=== PATIENT | female | born 1960 | race Caucasian/White ===

== ENCOUNTER → 2017-05-13 | Outpatient (CLI) | payer BC ==
--- NOTE | 2017-05-13 09:34 | MM ---
Reason for exam: follow-up at short interval from prior study. Last mammogram was performed 1 year ago. History: Patient is postmenopausal. Physical Findings: Nurse did not find any significant physical abnormalities on exam. MG 3D Diag Mammo W/Cad IVAN Bilateral CC and MLO view(s) were taken. Prior study comparison: October 28, 2016, right breast US breast RT. May 20, 2016, bilateral MG screening mammo w CAD. March 29, 2015, right breast MG work up mamm w CAD RT. There are scattered fibroglandular densities. There is no discrete abnormality. These results were verbally communicated with the patient and result sheet given to the patient on 05/13/17. ASSESSMENT: Negative, BI-RAD 1 RECOMMENDATION: Return to routine screening mammogram schedule for both breasts. Back on schedule.
--- NOTE | 2017-05-13 09:41 | USB ---
Reason for exam: follow-up at short interval from prior study. History: Patient is postmenopausal. US Breast RT Right breast ultrasound includes all four quadrants, the retroareolar region and axilla. Finding demonstrates a 0.4 x 0.2 x 0.4cm lesion too small to characterize at 11 o'clock. These results were verbally communicated with the patient and result sheet given to the patient on 05/13/17. ASSESSMENT: Benign, BI-RAD 2 RECOMMENDATION: Return to routine screening mammogram schedule for both breasts.
== END | disposition home or self-care (01) ==
LOC: RADMAMWWP 08:15
PROVIDERS: ATTEND Internal Medicine
DX: R92.8 Other abnormal and inconclusive findings on diagnostic imaging of breast (principal)
CPT/HCPCS: 76641; G0204; G0279

== ENCOUNTER → 2018-11-16 | Outpatient (CLI) | payer OTHER ==
--- NOTE | 2018-11-19 12:15 | MM ---
Reason for exam: screening (asymptomatic). Last mammogram was performed 1 year and 6 months ago. History: Patient is postmenopausal. MG 3D Screening Mammo W/Cad Bilateral CC and MLO view(s) were taken. Prior study comparison: May 13, 2017, bilateral MG 3d diag mammo w/cad IVAN. May 20, 2016, bilateral MG screening mammo w CAD. The breast tissue is heterogeneously dense. This may lower the sensitivity of mammography. No suspicious abnormality. No significant changes when compared with prior studies. ASSESSMENT: Negative, BI-RAD 1 RECOMMENDATION: Routine screening mammogram of both breasts in 1 year.
== END | disposition home or self-care (01) ==
LOC: RADMAMWWP 07:34
PROVIDERS: ATTEND Internal Medicine
DX: Z12.31 Encounter for screening mammogram for malignant neoplasm of breast (principal)
CPT/HCPCS: 77063; 77067

== ENCOUNTER → 2019-12-07 | Outpatient (CLI) | payer OTHER ==
--- NOTE | 2019-12-07 09:01 | BD ---
EXAMINATION TYPE: Axial Bone Density DATE OF EXAM: 12/07/2019 COMPARISON: NONE CLINICAL HISTORY: 59 YR OLD FEMALE...ICD-10 M89.9 DISORDER OF BONE Height: 60.2 Weight: 150 FRAX RISK QUESTIONS: 5. Chronic liver disease: HIGH LIVER ENZYMES RISK FACTORS HISTORY OF: Family History of Osteoporosis: YES, MOTHER W/O HIP FX Active: YES Diet low in dairy products/other sources of calcium: YES, A BIT Postmenopausal woman: YES AT 51 YRS OLD Take estrogen and/or progesterone medications: FOR ONLY 2 MOS IN PAST, NONE NOW Hyperparathyroidism: NO Adrenal Insufficiency: NO MEDICATIONS: Thyroid Medications: SYNTHROID FOR ABOUT 6-7 YRS NOW Additional Medications: STATIN FOR CHOLESTEROL, VIT D3 Additional History: CHOLESTEROL EXAM MEASUREMENTS: Bone mineral densitometry was performed using the [employer]. Bone mineral density as measured about the Lumbar spine is: ----- L1-L4(G/cm2): 1.030 T Score Values are as follows: ----- L1: -1.7 ----- L2: -2.3 ----- L3: -0.5 ----- L4: -0.8 ----- L1-L4: -1.3 Bone mineral density HER FIRST DEXA STUDY FOR [facility] Bone mineral density about the R hip (g/cm2): 0.844 Bone mineral density about the L hip (g/cm2): 0.903 T Score values are as follows: -----R Neck: -1.6 -----L Neck: -1.1 -----R Total: -1.3 -----L Total: -0.8 Bone mineral density FIRST DEXA STUDY AT [facility] FRAX%s: THERE IS A 8.4% CHANCE FOR A MAJOR OSTEOPOROTIC FX AND A 0.8% FOR HIP.....PROBABILITY FOR F X IN 10 YRS TIME IMPRESSION: Osteopenia (T Score between -2.5 and -1). There is slightly increased risk of fracture and the patient may be considered for treatment. Re-Screen 2-5 years. NOTE: T-SCORE=SD OF THE YOUNG ADULT MEAN.
--- NOTE | 2019-12-07 12:02 | MM ---
Reason for exam: screening (asymptomatic). Last mammogram was performed 1 year and 1 month ago. History: Patient is postmenopausal. Physical Findings: A clinical breast exam by your physician is recommended on an annual basis and results should be correlated with mammographic findings. MG 3D Screening Mammo W/Cad Bilateral CC and MLO view(s) were taken. Prior study comparison: November 16, 2018, bilateral MG 3d screening mammo w/cad. May 13, 2017, bilateral MG 3d diag mammo w/cad IVAN. No significant changes when compared with prior studies. ASSESSMENT: Negative, BI-RAD 1 RECOMMENDATION: Routine screening mammogram of both breasts in 1 year.
== END | disposition home or self-care (01) ==
LOC: RADMAMWWP 06:59
PROVIDERS: ATTEND Internal Medicine
DX: Z12.31 Encounter for screening mammogram for malignant neoplasm of breast (principal); M85.88 Other specified disorders of bone density and structure, other site
CPT/HCPCS: 77063; 77067; 77080

== ENCOUNTER → 2021-01-20 | Outpatient (CLI) | payer OTHER ==
[2021-01-20 19:25] LABS: C Reactive Protein, High Sens 1.47 mg/L (0.000-3.000)
[2021-01-20 20:44] LABS: Anti-DNA, DS unit <1.0 IU/mL; Cyclic Citrull Pep IgG Unit <0.5 U/mL; Cyclic Citrullinated Pep IgG NEGATIVE (NEGATIVE); DNA Double-Stranded NEGATIVE (NEGATIVE)
== END | disposition home or self-care (01) ==
LOC: LABWHC1 10:34
PROVIDERS: ATTEND Family Medicine
DX: R61 Generalized hyperhidrosis (principal)
CPT/HCPCS: 36415; 84443; 85652; 86038; 86141; 86200; 86225; 86235; 86431

== ENCOUNTER → 2021-04-02 | Outpatient (CLI) | payer OTHER | END | disposition home or self-care (01) | LOC: LABWHC1 09:37 | PROVIDERS: ATTEND Family Medicine | DX: Z20.822 Contact with and (suspected) exposure to COVID-19 (principal); B34.9 Viral infection, unspecified | CPT/HCPCS: U0003; C9803; U0005 ==

== ENCOUNTER 2021-04-10 13:00 | Emergency (ER) | payer OTHER ==
[2021-04-10 13:09] VITALS: TEMP 97.8
--- NOTE | 2021-04-10 13:28 | ED ---
Upper Extremity HPI - General Chief Complaint: Extremity Injury, Upper Stated Complaint: R arm injury Time Seen by Provider: 04/10/21 13:17 Source: patient Mode of arrival: ambulatory - History of Present Illness Initial Comments: 60-year-old male presents to the emergency department with chief complaint of right hand injury. This occurred about 1 hour prior to arrival. Patient states her grandson accidentally slammed the door on her right hand. She reports a small abrasion on the dorsal aspect of the right hand but states there is some pain with grasping. States she still able to move the fingers without any difficulties. Tenderness to the touch. Alleviated with rest. Also reports some scaphoid tenderness. Denies any paresthesias. Denies taking medication to alleviate the symptoms. - Related Data Allergies Allergy/AdvReac Type Severity Reaction Status Date / Time No Known Allergies Allergy Verified 04/10/21 13:09 Review of Systems ROS Statement: Those systems with pertinent positive or pertinent negative responses have been documented in the HPI. ROS Other: All systems not noted in ROS Statement are negative. Past Medical History Past Medical History: Asthma, Hyperlipidemia, Thyroid Disorder History of Any Multi-Drug Resistant Organisms: None Reported Past Surgical History: Section Past Psychological History: Depression Smoking Status: Never smoker Past Alcohol Use History: Occasional Past Drug Use History: None Reported General Exam Limitations: no limitations General appearance: alert, in no apparent distress Head exam: Present: atraumatic, normocephalic, normal inspection Eye exam: Present: normal appearance, PERRL, EOMI Pupils: Present: normal accommodation ENT exam: Present: normal exam, normal oropharynx, mucous membranes moist Neck exam: Present: normal inspection, full ROM. Absent: tenderness, lymphadenopathy Respiratory exam: Present: normal lung sounds bilaterally. Absent: respiratory distress, rales Cardiovascular Exam: Present: regular rate, normal rhythm, normal heart sounds. Absent: systolic murmur Extremities exam: Present: normal inspection (Small abrasion on dorsal aspect of her right hand), full ROM, tenderness (Tenderness of the hand. Scaphoid tenderness the right thumb base.), normal capillary refill, other (Palpable ulnar and radial pulses bilaterally). Absent: pedal edema, joint swelling, calf tenderness Back exam: Present: normal inspection, full ROM. Absent: tenderness, CVA tenderness (R), CVA tenderness (L) Neurological exam: Present: alert, oriented X3 Psychiatric exam: Present: normal affect, normal mood Skin exam: Present: warm, dry, intact, normal color Course Vital Signs 04/10/21 04/10/21 13:06 15:09 Temperature 97.8 F Pulse Rate 82 72 Respiratory 20 18 Rate Blood Pressure 164/84 150/84 O2 Sat by Pulse 99 97 Oximetry Procedures - Orthopedic Splinting/Casting Injury #1 Side: right Upper Extremity Injury Location: wrist, hand Upper Extremity Immobilizer: thumb spica, Anatoly wrap, synthetic pre-padded splint Medical Decision Making - Medical Decision Making 60-year-old female presents to emergency Department with a chief complaint of injury to the right hand. On physical examination, she is neurovascularly intact, however she appears to have scaphoid tenderness. X-ray is unremarkable. Thumb spica was applied and patient was advised to obtain repeat imaging 7-10 days. Return parameters were thoroughly discussed the patient was understanding and agreeable. Case discussed with . Disposition Clinical Impression: Injury of right hand Disposition: HOME SELF-CARE Condition: Stable Instructions (If sedation given, give patient instructions): Hand Sprain (ED) Additional Instructions: Obtain repeat x-rays in 7-10 days. Return to emergency department if symptoms worsen. Is patient prescribed a controlled substance at d/c from ED?: No Referrals: Terry Quiroz [Primary Care Provider] - 1-2 days Time of Disposition: 15:03
--- NOTE | 2021-04-10 14:46 | XR ---
EXAMINATION TYPE: XR hand complete RT DATE OF EXAM: 04/10/2021 CLINICAL HISTORY: Pain. TECHNIQUE: Frontal, lateral and oblique images of the right hand are obtained. COMPARISON: None. FINDINGS: There is no acute fracture/dislocation evident in the right hand. Lateral subluxation thir d PIP joint with mild to moderate narrowing and mild spurring. [id number] narrowing and spurrin g throughout the PIP/DIP joints. Moderate narrowing and spurring base of first metacarpal. The overl eusebio soft tissue appears unremarkable. IMPRESSION: As above.
[2021-04-10 15:10] VITALS: BP 150/84; PULSE 72; RESP 18
== END 2021-04-10 15:15 | disposition home or self-care (01) ==
LOC: EC 13:00
DX: S60.511A Abrasion of right hand, initial encounter (principal); J45.909 Unspecified asthma, uncomplicated; E78.5 Hyperlipidemia, unspecified; F32.9 Major depressive disorder, single episode, unspecified; W23.0XXA Caught, crushed, jammed, or pinched between moving objects, initial encounter
CPT/HCPCS: 29125; 99283

== ENCOUNTER → 2021-04-22 | Outpatient (CLI) | payer OTHER ==
--- NOTE | 2021-04-22 10:27 | XR ---
EXAMINATION TYPE: XR hand complete RT DATE OF EXAM: 04/22/2021 CLINICAL HISTORY: pain TECHNIQUE: Frontal, lateral and oblique images of the right hand are obtained. COMPARISON: None. FINDINGS: There is no acute fracture/dislocation evident. The joint spaces appear within normal limi ts. The overlying soft tissue appears unremarkable. IMPRESSION: There is no acute fracture or dislocation ICD 10 NO FRACTURE, INITIAL EVALUATION
== END | disposition home or self-care (01) ==
LOC: RADXRMAIN 09:45
PROVIDERS: ATTEND Physician Assistant Medical
DX: M79.641 Pain in right hand (principal)

== ENCOUNTER → 2021-04-25 | Outpatient (CLI) | payer OTHER ==
--- NOTE | 2021-04-30 10:43 | MM ---
Reason for exam: screening (asymptomatic). Last mammogram was performed 1 year and 5 months ago. History: Patient is postmenopausal. Taking estrogen for 1 month beginning at age 60. Physical Findings: A clinical breast exam by your physician is recommended on an annual basis and results should be correlated with mammographic findings. MG 3D Screening Mammo W/Cad Bilateral CC and MLO view(s) were taken. Prior study comparison: December 07, 2019, bilateral MG 3d screening mammo w/cad. November 16, 2018, bilateral MG 3d screening mammo w/cad. May 13, 2017, bilateral MG 3d diag mammo w/cad IVAN. The breast tissue is heterogeneously dense. This may lower the sensitivity of mammography. Right increased focal asymmetry upper outer quadrant anterior to middle depth. Left increased focal asymmetry superior middle depth. ASSESSMENT: Incomplete: need additional imaging evaluation, BI-RAD 0 RECOMMENDATION: Special view mammogram of both breasts. Ultrasound of the right breast. [facility] will attempt to contact patient to return for supplemental views and ultrasound.
== END | disposition home or self-care (01) ==
LOC: RADMAMWWP 12:33
PROVIDERS: ATTEND Obstetrics & Gynecology
DX: Z12.31 Encounter for screening mammogram for malignant neoplasm of breast (principal); Z78.0 Asymptomatic menopausal state
CPT/HCPCS: 77063; 77067

== ENCOUNTER → 2021-05-06 | Outpatient (CLI) | payer OTHER ==
--- NOTE | 2021-05-07 09:59 | MM ---
Reason for exam: additional evaluation requested from abnormal screening. Last mammogram was performed less than 1 month ago. History: Patient is postmenopausal. Taking estrogen for 1 month beginning at age 60. Taking progesterone for 1 month beginning at age 60. Physical Findings: Nurse did not find any significant physical abnormalities on exam. MG 3D Work Up W/Cad IVAN Bilateral spot compression CC, spot compression MLO, and LM view(s) were taken. Prior study comparison: April 25, 2021, bilateral MG 3d screening mammo w/cad. December 07, 2019, bilateral MG 3d screening mammo w/cad. The breast tissue is heterogeneously dense. This may lower the sensitivity of mammography. Increased diffuse breast density bilaterally, most likely hormone replacement, probably benign. 6 month follow up. Denies lump in right axilla or breast, right focal lateral breast pain, ultrasound recommended. These results were verbally communicated with the patient and result sheet given to the patient on 05/06/21. ASSESSMENT: Incomplete: need additional imaging evaluation, BI-RAD 0 RECOMMENDATION: Ultrasound of the right breast. (focal lateral)
--- NOTE | 2021-05-07 10:00 | USB ---
Reason for exam: additional evaluation requested from abnormal screening. History: Patient is postmenopausal. Taking estrogen for 1 month beginning at age 60. Taking progesterone for 1 month beginning at age 60. US Breast Limited RT Technologist: Radha Whitfield Right limited breast ultrasound including focal area of concern, retroareolar and axilla demonstrates no cystic or solid lesion seen. No sonographic findings at site of pain. These results were verbally communicated with the patient and result sheet given to the patient on 05/06/21. ASSESSMENT: Probably benign, BI-RAD 3 RECOMMENDATION: Follow-up diagnostic mammogram of both breasts in 6 months.
== END | disposition home or self-care (01) ==
LOC: RADMAMWWP 12:43
PROVIDERS: ATTEND Obstetrics & Gynecology
DX: R92.2 Inconclusive mammogram (principal); Z78.0 Asymptomatic menopausal state; Z79.3 Long term (current) use of hormonal contraceptives
CPT/HCPCS: 77066; 76642; G0279; 77062

== ENCOUNTER 2021-07-03 10:17 | Emergency (ER) | payer OTHER ==
[2021-07-03 10:27] VITALS: RESP 18
[2021-07-03] MEDS ORDERED: BACITRACIN OINT 1 EACH PACKET TOPICAL ONE (10:50)
[2021-07-03] MEDS ORDERED: IBUPROFEN 600 MG TAB PO STA (10:50)
--- NOTE | 2021-07-03 10:54 | ED ---
General Adult HPI - General Chief complaint: Fall Stated complaint: Fall, arm & knee injury Time Seen by Provider: 07/03/21 10:38 Source: patient, RN notes reviewed Mode of arrival: ambulatory Limitations: no limitations - History of Present Illness Initial comments: Well-appearing 60-year-old female presents to the emergency room after trying to help her disabled daughter in a wheelchair down a step. She states she ended up falling forward landing on her elbows and knees. She has sustained abrasions to her left hand, her elbows and bilateral knees. She states that she is concerned about the left elbow and hand and is requesting an x-ray. She has full mobility. Her tetanus shot is up-to-date. She did not hit her head and she is not on blood thinners. Location: left (Left hand), upper extremity (Bilateral elbows), lower extremity (Bilateral knees) Radiation: non-radiation Severity scale (1-10): 8 Quality: aching Consistency: constant Improves with: immobilization Worsens with: movement Associated Symptoms: denies other symptoms Treatments Prior to Arrival: none - Related Data Allergies Allergy/AdvReac Type Severity Reaction Status Date / Time No Known Allergies Allergy Verified 07/03/21 10:23 Review of Systems ROS Statement: Those systems with pertinent positive or pertinent negative responses have been documented in the HPI. ROS Other: All systems not noted in ROS Statement are negative. Past Medical History Past Medical History: Asthma, Hyperlipidemia, Thyroid Disorder History of Any Multi-Drug Resistant Organisms: None Reported Past Surgical History: Section Past Psychological History: Depression Smoking Status: Never smoker Past Alcohol Use History: Occasional Past Drug Use History: None Reported General Exam Limitations: no limitations General appearance: alert, in no apparent distress Head exam: Present: atraumatic, normocephalic, normal inspection Eye exam: Present: normal appearance, PERRL, EOMI. Absent: scleral icterus, conjunctival injection, periorbital swelling ENT exam: Present: normal exam, normal oropharynx, mucous membranes moist Neck exam: Present: normal inspection, full ROM. Absent: tenderness, meningismus, lymphadenopathy, thyromegaly Respiratory exam: Present: normal lung sounds bilaterally. Absent: respiratory distress, wheezes, rales, rhonchi, stridor, chest wall tenderness, accessory muscle use, decreased breath sounds Cardiovascular Exam: Present: regular rate, normal rhythm, normal heart sounds. Absent: systolic murmur, diastolic murmur, rubs, gallop, clicks GI/Abdominal exam: Present: soft, normal bowel sounds. Absent: distended, tenderness, guarding, rebound, rigid Extremities exam: Present: full ROM, normal capillary refill. Absent: tenderness, pedal edema, joint swelling, calf tenderness Left Elbow exam: Present: full ROM, tenderness, swelling, abrasion. Absent: laceration, ecchymosis, deformity, dislocation, erythema, effusion Hand Wrist exam: Present: full ROM, tenderness, abrasion. Absent: laceration, ecchymosis, deformity, crepitus, dislocation, erythema Neuro motor exam: Present: wrist extension intact Vascular: Present: radial pulse. Absent: vascular compromise, normal capillary refill Back exam: Present: normal inspection, full ROM. Absent: tenderness, CVA tenderness (R), CVA tenderness (L), muscle spasm, paraspinal tenderness, vertebral tenderness, rash noted Neurological exam: Present: alert, oriented X3, CN II-XII intact Psychiatric exam: Present: normal affect, normal mood Skin exam: Present: warm, dry, intact, normal color. Absent: rash, cyanosis, diaphoretic, pallor Course Vital Signs 07/03/21 07/03/21 10:23 12:29 Temperature 98.6 F 98.2 F Pulse Rate 78 81 Respiratory 18 18 Rate Blood Pressure 158/89 165/82 O2 Sat by Pulse 98 98 Oximetry Medical Decision Making - Medical Decision Making X-ray of the elbow shows no acute fracture or dislocation. There is no acute fracture dislocation of the left hand. Her wounds were cleaned and dressed with bacitracin and bandages. She will be directed to follow up with primary care doctor continue Tylenol or Motrin for pain. Return to the emergency room with any new or worsening symptoms or signs of infection. Her tetanus shot is up-to-date. Disposition Clinical Impression: Fall, Abrasion Disposition: HOME SELF-CARE Condition: Good Instructions (If sedation given, give patient instructions): Abrasion (ED), Fall Prevention (ED) Additional Instructions: Keep wounds clean and dry, use bacitracin or Neosporin bandages. Take Tylenol and/or Motrin for pain. Follow-up with your primary care doctor in 1 week. Return to the emergency room with any new or worsening symptoms. Is patient prescribed a controlled substance at d/c from ED?: No Referrals: Terry Quiroz [Primary Care Provider] - 1-2 days Time of Disposition: 12:23
--- NOTE | 2021-07-03 11:32 | XR ---
EXAMINATION TYPE: XR elbow complete LT DATE OF EXAM: 07/03/2021 CLINICAL HISTORY: Pain after fall injury TECHNIQUE: Frontal, lateral and oblique images of the left elbow are obtained. COMPARISON: None FINDINGS: There is no acute fracture/dislocation evident in the left elbow. No abnormal fat pad sig ns are seen. The overlying soft tissue appears unremarkable. IMPRESSION: There is no acute fracture or dislocation in the left elbow.
--- NOTE | 2021-07-03 12:13 | XR ---
EXAMINATION TYPE: XR hand complete LT DATE OF EXAM: 07/03/2021 CLINICAL HISTORY: Fall with laceration injury and pain TECHNIQUE: Frontal, lateral and oblique images of the left hand are obtained. COMPARISON: None. FINDINGS: Osseous structures are demineralized. There is no acute fracture/dislocation evident in th e left hand. Severe narrowing base of first metacarpal with bone reformation radial aspect from the t rapezium. Mild to moderate narrowing throughout the PIP and the DIP joints of the phalanges. The over lying soft tissue appears unremarkable. IMPRESSION: There is no acute fracture or dislocation in the left hand.
[2021-07-03 12:30] VITALS: BP 165/82; PULSE 81; TEMP 98.2
== END 2021-07-03 12:30 | disposition home or self-care (01) ==
LOC: EC 10:17
DX: S60.512A Abrasion of left hand, initial encounter (principal); E78.5 Hyperlipidemia, unspecified; W10.9XXA Fall (on) (from) unspecified stairs and steps, initial encounter
CPT/HCPCS: 99284

== ENCOUNTER → 2021-07-21 | Outpatient (CLI) | payer OTHER ==
--- NOTE | 2021-07-21 14:15 | XR ---
EXAMINATION TYPE: XR knee complete LT DATE OF EXAM: 07/21/2021 COMPARISON: None HISTORY: 50-year-old female M2 5.562 medial pain and tenderness. TECHNIQUE: 3 views FINDINGS: There is tricompartmental degenerative spurring. Trace knee joint effusion is suggested. Extensor mec hanism appears intact. No acute fracture, subluxation, or dislocation seen. There is a mediastinal so ft tissue swelling on the oblique view. No acute fracture, subluxation, dislocation seen. IMPRESSION: 1. Mild tricompartmental osteoarthrosis. No acute osseous abnormality seen. 2. There appears to be a medial sided soft tissue swelling on the oblique view. If concern for management retail intern al derangement, MRI can be performed.
== END | disposition home or self-care (01) ==
LOC: RADXRMAIN 12:01
PROVIDERS: ATTEND Family Medicine
DX: M17.12 Unilateral primary osteoarthritis, left knee (principal)

== ENCOUNTER 2021-10-07 18:04 | Emergency (ER) | payer OTHER ==
[2021-10-07 18:45] LABS: Basophils # (A) 0.1 k/uL (0-0.2); Basophils % (A) 0 %; Eosinophils # (A) 0.3 k/uL (0-0.7); Eosinophils % (A) 2 %; HCT 42.7 % (34.0-46.0); HGB 14.4 gm/dL (11.4-16.0); Lymphocytes # (A) 1.8 k/uL (1.0-4.8); Lymphocytes % (A) 11 %; MCH 30.4 pg (25.0-35.0); MCHC 33.8 g/dL (31.0-37.0); Mean Platelet Volume 7.2; Monocytes # (A) 0.7 k/uL (0-1.0); Monocytes % (A) 4 %; Neutrophils # (A) 13.1 k/uL (1.3-7.7); Neutrophils % (A) 81 %; Platelet Count 307 k/uL (150-450); RBC 4.75 m/uL (3.80-5.40); WBC 16.2 k/uL (3.8-10.6)
[2021-10-07 18:53] LABS: INR 0.9 (<1.2); Partial Thromboplastin Time 24.1 sec (22.0-30.0)
--- NOTE | 2021-10-07 19:06 | XR ---
EXAMINATION TYPE: XR chest 2V DATE OF EXAM: 10/07/2021 COMPARISON: NONE HISTORY: Chest tightness TECHNIQUE: 2 views FINDINGS: Heart and mediastinum are normal. Lungs are clear of consolidation. There is slight coarsen ing of interstitial markings. There is no pleural effusion. There are no hilar masses. IMPRESSION: Minimal pulmonary fibrotic changes. Normal heart.
[2021-10-07 19:09] LABS: ALT 46 U/L (4-34); AST 36 U/L (14-36); African American GFR (CKD) >90 (>60 ml/min/1.73 sqM); Albumin 4.4 g/dL (3.5-5.0); Alkaline Phosphatase 89 U/L (38-126); Blood Urea Nitrogen 9 mg/dL (7-17); Calcium 8.8 mg/dL (8.4-10.2); Carbon Dioxide 20 mmol/L (22-30); Glucose 100 mg/dL (74-99); Non-African American GFR(CKD) >90 (>60 ml/min/1.73 sqM); Total Bilirubin 1.3 mg/dL (0.2-1.3); Total Protein 7.6 g/dL (6.3-8.2)
[2021-10-07 19:15] LABS: Anion Gap 11 mmol/L; Chloride 105 mmol/L (98-107); Sodium 136 mmol/L (137-145)
[2021-10-07] MEDS ORDERED: AMOXIC-POT CLAV 875-125MG 1 EACH TAB PO STA (21:57)
[2021-10-07] MEDS ORDERED: Acetaminophen-Codeine 300-30mg TAB PO STA (21:57)
[2021-10-07] MEDS ORDERED: ONDANSETRON ODT 4 MG TAB PO STA (21:57)
--- NOTE | 2021-10-07 21:57 | ED ---
Chest Pain HPI - General Chief Complaint: Chest Pain Stated Complaint: chest tightness, diverticulitis Time Seen by Provider: 10/07/21 21:47 Source: patient, RN notes reviewed, old records reviewed Mode of arrival: wheelchair Limitations: no limitations - History of Present Illness Initial Comments: This is a 61-year-old female to the ER today for evaluation regards to abdominal pain and chest pain. Patient also has recent coronavirus exposure. Patient has no recent fevers. Patient also believes that she has recurrent diverticulitis. Patient states she is not evaluation for diverticulitis she notes she does feel diffusely treatment. MD Complaint: chest pain, other (LLQ abd pain) -: days(s) Onset: during rest, during exertion Pain Location: left chest, right chest Pain Radiation: abdomen Severity: moderate Quality: aching Consistency: intermittent Improves With: nothing Worsens With: nothing Anginal Symptoms: nausea, vomiting Other Symptoms: palpitations Treatments Prior to Arrival: none - Related Data Previous Rx's Medication Instructions Recorded Amoxic-Pot Clav 875-125Mg 1 tab PO Q12HR #20 tablet 10/07/21 [Augmentin 875-125] Allergies Allergy/AdvReac Type Severity Reaction Status Date / Time No Known Allergies Allergy Verified 10/07/21 18:10 Review of Systems ROS Statement: Those systems with pertinent positive or pertinent negative responses have been documented in the HPI. ROS Other: All systems not noted in ROS Statement are negative. Past Medical History Past Medical History: Asthma, Hyperlipidemia, Thyroid Disorder History of Any Multi-Drug Resistant Organisms: None Reported Past Surgical History: Section Past Psychological History: Depression Smoking Status: Never smoker Past Alcohol Use History: Occasional Past Drug Use History: None Reported General Exam Limitations: no limitations General appearance: alert, in no apparent distress, anxious Head exam: Present: atraumatic, normocephalic, normal inspection Eye exam: Present: normal appearance, PERRL, EOMI. Absent: scleral icterus, conjunctival injection, periorbital swelling ENT exam: Present: normal exam, mucous membranes moist Neck exam: Present: normal inspection. Absent: tenderness, meningismus, lymphadenopathy Respiratory exam: Present: normal lung sounds bilaterally. Absent: respiratory distress, wheezes, rales, rhonchi, stridor Cardiovascular Exam: Present: normal rhythm, tachycardia, normal heart sounds. Absent: systolic murmur, diastolic murmur, rubs, gallop, clicks GI/Abdominal exam: Present: soft, normal bowel sounds. Absent: distended, tenderness, guarding, rebound, rigid Extremities exam: Present: normal inspection, full ROM, normal capillary refill. Absent: tenderness, pedal edema, joint swelling, calf tenderness Back exam: Present: normal inspection Neurological exam: Present: alert, oriented X3, CN II-XII intact Psychiatric exam: Present: normal affect, normal mood Skin exam: Present: warm, dry, intact, normal color. Absent: rash Course Vital Signs 10/07/21 10/07/21 18:06 22:15 Temperature 99.0 F 99 F Pulse Rate 111 H 100 Respiratory 19 17 Rate Blood Pressure 157/79 136/78 O2 Sat by Pulse 98 99 Oximetry - Reevaluation(s) Reevaluation #1: Medical record is reviewed Patient symptoms are significantly improved here in the ER Patient informed results and questions answered Chest Pain MDM - MDM 61 female who believes she has recurrent diverticulitis and current chest pain. Chest pain workup is normal. Patient has improved symptoms of diverticulitis with fell outpatient treatment Disposition Clinical Impression: Atypical chest pain, Chest pain, Acute diverticulitis Disposition: HOME SELF-CARE Condition: Good Instructions (If sedation given, give patient instructions): Chest Pain (ED), Diverticulitis (ED) Prescriptions: Amoxic-Pot Clav 875-125Mg [Augmentin 875-125] 1 tab PO Q12HR #20 tablet Is patient prescribed a controlled substance at d/c from ED?: No Referrals: Terry Quiroz [Primary Care Provider] - 1-2 days
[2021-10-07] MEDS ORDERED: ONDANSETRON 4 MG ODT STARTER PACK 2 TAB BTL PO STA (21:58)
[2021-10-07] MEDS ORDERED: IBUPROFEN 600 MG STARTER PACK 4 TAB BTL PO STA (21:58)
[2021-10-07] MEDS ORDERED: AMOXIC-POT CLAV 875MG STARTER PACK 2 TAB BTL PO STA (21:58)
[2021-10-07] MEDS ORDERED: ACET/COD 300 MG/30 MG STARTER PACK 6 TAB BTL PO STA (21:58)
[2021-10-07 22:16] VITALS: BP 136/78; PULSE 100; RESP 17; TEMP 99
== END 2021-10-07 22:16 | disposition home or self-care (01) ==
LOC: EC 18:04
DX: R07.89 Other chest pain (principal); K57.32 Diverticulitis of large intestine without perforation or abscess without bleeding; J45.909 Unspecified asthma, uncomplicated; E78.5 Hyperlipidemia, unspecified; E07.9 Disorder of thyroid, unspecified; F32.A Depression, unspecified
CPT/HCPCS: 99285; 36415; 93005; 80053; 83735; 84484; 85025; 85610; 85730; 87635; 71046; S0119

== ENCOUNTER → 2021-10-29 | Outpatient (CLI) | payer OTHER ==
--- NOTE | 2021-10-30 07:55 | MM ---
Reason for exam: additional evaluation requested from prior study. Last mammogram was performed 6 months ago. History: Patient is postmenopausal. Taking estrogen for 1 month beginning at age 60. Taking progesterone for 1 month beginning at age 60. Physical Findings: Nurse did not find any significant physical abnormalities on exam. MG 3D Diag Mammo W/Cad IVAN Bilateral CC and MLO view(s) were taken. Prior study comparison: May 06, 2021, bilateral MG 3d work up w/cad IVAN. April 25, 2021, bilateral MG 3d screening mammo w/cad. The breast tissue is heterogeneously dense. This may lower the sensitivity of mammography. There is no discrete abnormality. These results were verbally communicated with the patient and result sheet given to the patient on 10/29/21. ASSESSMENT: Benign, BI-RAD 2 RECOMMENDATION: Routine screening mammogram of both breasts in 1 year.
== END | disposition home or self-care (01) ==
LOC: RADMAMWWP 14:47
PROVIDERS: ATTEND Obstetrics & Gynecology
DX: R92.2 Inconclusive mammogram (principal); Z78.0 Asymptomatic menopausal state
CPT/HCPCS: 77066; G0279; 77062

== ENCOUNTER → 2022-01-07 | Outpatient (CLI) | payer OTHER ==
--- NOTE | 2022-01-07 09:14 | XR ---
EXAMINATION TYPE: XR chest 2V DATE OF EXAM: 01/07/2022 COMPARISON: X-ray dated 10/07/2021 HISTORY: Cough for 4 months TECHNIQUE: Frontal and lateral views of the chest are obtained. FINDINGS: Unremarkable lungs. No pleural effusion or pneumothorax. No cardiomegaly. Mild aortic atherosclerotic calcifications. Mild degenerative changes of the midthoracic spine. IMPRESSION: No significant pulmonary abnormality identified.
== END | disposition home or self-care (01) ==
LOC: RADXRMAIN 08:48
PROVIDERS: ATTEND Family Medicine
DX: R06.02 Shortness of breath (principal); R05.9 Cough, unspecified
CPT/HCPCS: 71046

== ENCOUNTER 2022-03-03 08:22 | Day surgery (SDC) | payer OTHER ==
[2022-02-27 10:30] VITALS: BMI 29.5
[~2022-03-03 08:22] MED LIST: LACTATED RINGERS 1,000 ML IV SCH; LIDOCAINE 1% (10MG/ML) FOR IV START INTRADERMA PRN; ONDANSETRON 4 MG/2 ML VIAL IVP PRN
[2022-03-03 09:18] VITALS: TEMP 97.9
[2022-03-03 09:28] LABS: Glucose,Whole Blood 90 mg/dL (75-99)
[2022-03-03] MEDS ORDERED: LIDOCAINE 2% INJ 20 MG/ML (2 ML VIAL) ONE (10:04)
[2022-03-03] MEDS ORDERED: PROPOFOL 10 MG/ML 20 ML VIAL IV ONE (10:04)
--- NOTE | 2022-03-03 10:26 | P.PCN ---
Date of Procedure: 03/03/22 Procedure(s) Performed: BRIEF HISTORY: Patient is a 61-year-old pleasant female scheduled for an elective colonoscopy as a part of evaluation of prior history of colon polyps. She also had 2 attacks of acute sigmoid diverticulitis in the last 1 year duration. PROCEDURE PERFORMED: Colonoscopy. PREOPERATIVE DIAGNOSIS:History of colon polyps and recent episode of acute sigmoid diverticulitis]. IV sedation per Anesthesia. PROCEDURE: After informed consent was obtained, the patient, was brought into the endoscopy unit. IV sedation was administered by Anesthesia under continuous monitoring. Digital rectal examination was normal. Initially the Olympus CF-160 flexible video colonoscope was then inserted in the rectum, gradually advanced into the cecum without any difficulty. Careful examination was performed as the scope was gradually being withdrawn. Ileocecal valve and the appendiceal orifice were visualized and appeared normal. Prep was excellent. Mucosa of the cecum, ascending colon, transverse colon, descending colon, sigmoid colon, and rectum appeared normal. A few scattered diverticulosis seen. Retroflexion was performed in the rectum and no lesions were seen. The patient tolerated the procedure well. IMPRESSION: Diffuse scattered diverticulosis noted throughout the entire colon more prominent in the left colon. No evidence of colorectal neoplasia RECOMMENDATIONS: Findings of this examination were discussed with the patient as well as her family. She was advised to be a high-fiber diet and fiber supplements a regular basis. Recommend repeat screening colonoscopy in 10 years..
[2022-03-03 10:34] VITALS: RESP 16
[2022-03-03 10:42] VITALS: BP 123/83; PULSE 83
== END 2022-03-03 11:10 | disposition home or self-care (01) ==
LOC: ORWHC2ENDO 08:22
PROVIDERS: ATTEND Internal Medicine Gastroenterology
DX: K57.32 Diverticulitis of large intestine without perforation or abscess without bleeding (principal); Z86.010 Personal history of colon polyps; E78.5 Hyperlipidemia, unspecified; J45.909 Unspecified asthma, uncomplicated; E07.9 Disorder of thyroid, unspecified; K21.9 Gastro-esophageal reflux disease without esophagitis; Z79.899 Other long term (current) drug therapy
CPT/HCPCS: 45378; J2704; J2001

== ENCOUNTER → 2022-06-09 | Outpatient (CLI) | payer OTHER ==
--- NOTE | 2022-06-10 07:07 | XR ---
EXAMINATION TYPE: XR toes RT DATE OF EXAM: 06/09/2022 5:05 PM INDICATION: Patient age:Female; 61 years old; Reason for study: S92.919A UNSP FRACTURE OF UNSP TOE(S), INIT FOR CL; COMPARISON: None TECHNIQUE: The toes of the right foot foot was examined in the AP, oblique, and lateral projections. FINDINGS: No evidence of any acute osseous pathology. No evidence of soft tissue swelling. Joints are preserve d. Incidental note is made of symphalangism of the fifth distal interphalangeal joint. No radiopaque foreign bodies. IMPRESSION: No evidence of acute fracture.
== END | disposition home or self-care (01) ==
LOC: RADXRMAIN 16:49
PROVIDERS: ATTEND Family Medicine
DX: S92.911A Unspecified fracture of right toe(s), initial encounter for closed fracture (principal)

== ENCOUNTER → 2022-07-08 | Outpatient (CLI) | payer OTHER ==
--- NOTE | 2022-07-08 13:34 | MM ---
Reason for Exam: Screening (asymptomatic). Last screening mammogram was performed 9 month(s) ago. Patient History: Menarche at age 12. First Full-Term at age 20. Postmenopausal. Patient has history of breast feeding. Currently using Estrogen, for 1 month. Currently using Progesterone, for 1 month. Risk Values: Bridgette 5 year model risk: 1.3%. NCI Lifetime model risk: 5.5%. Prior Study Comparison: 04/25/2021 Bilateral Screening Mammogram, [facility]. 05/06/2021 Bilateral Diagnostic Mammogram, [facility]. 10/29/2021 Bilateral Diagnostic Mammogram, [facility]. Tissue Density: The breast tissue is heterogeneously dense. This may lower the sensitivity of mammography. Findings: Analyzed By CAD. No significant changes when compared with prior studies. No discrete abnormality. Overall Assessment: Negative, BI-RAD 1 Management: Screening Mammogram of both breasts in 1 year. A clinical breast exam by your physician is recommended on an annual basis and results should be correlated with mammographic findings. Electronically signed and approved by: Dale Sánchez M.D. Radiologis
--- NOTE | 2022-07-09 19:14 | BD ---
EXAMINATION TYPE: Axial Bone Density DATE OF EXAM: 07/08/2022 COMPARISON: NONE CLINICAL HISTORY: 61 year old Female. ICD-10 CODE: M85.88 DISORDER OF BONE Height: 60.5 Weight: 160 FRAX RISK QUESTIONS: Alcohol (3 or more units per day): no Family History (Parent hip fracture): no Glucocorticoids (More than 3mos): no (Ex: prednisone, prednisolone, methylprednisolone, dexamethasone, and hydrocortisone). History of Fracture in Adulthood: no Secondary Osteoporosis: 1. Type 1 Diabetes: no 2. Hyperthyroidism: no 3. Menopause before 45: no 4. Malnutrition: no 5. Chronic liver disease: no Rheumatoid Arthritis: no Current Tobacco Use: no RISK FACTORS HISTORY OF: Surgery to Spine/Hip(right/left)/Wrist (right/left): no Family History of Osteoporosis: no Active: yes Diet low in dairy products/other sources of calcium: yes Postmenopausal woman: yes Take estrogen and/or progesterone medications: yes How lon years Lost more than 2 inches in height since high school: no MEDICATIONS: Thyroid Medications: levothyroxine How Lon years Additional History: EXAM MEASUREMENTS: Bone mineral densitometry was performed using the [employer] System. Bone mineral density as measured about the Lumbar spine is: ----- L1-L4(G/cm2): 1.083 T Score Values are as follows: ----- L1: -1.1 ----- L2: -1.9 ----- L3: -0.1 ----- L4: -0.5 ----- L1-L4: -0.8 Bone mineral density : previous unavailable Bone mineral density about the R hip (g/cm2): 0.877 Bone mineral density about the L hip (g/cm2): 0.880 T Score values are as follows: -----R Neck: -1.2 -----L Neck: -1.1 -----R Total: -0.9 -----L Total: -0.7 Bone mineral density : previous unavailable FRAX%s: The graph provided illustrates a 7.7% chance for a major osteoporotic fx and a 0.6% chance fo r the hips probability for fx in 10 years time. IMPRESSION: Osteopenia (T Score between -2.5 and -1). There is slightly increased risk of fracture and the patient may be considered for treatment. Re-Screen 2-5 years. NOTE: T-SCORE=SD OF THE YOUNG ADULT MEAN.
== END | disposition home or self-care (01) ==
LOC: RADMAMWWP 07:17
PROVIDERS: ATTEND Obstetrics & Gynecology
DX: Z12.31 Encounter for screening mammogram for malignant neoplasm of breast (principal); M85.89 Other specified disorders of bone density and structure, multiple sites; Z78.0 Asymptomatic menopausal state
CPT/HCPCS: 77063; 77067; 77080

== ENCOUNTER 2022-08-17 09:58 | Emergency (ER) | payer OTHER ==
[2022-08-17 10:21] VITALS: RESP 18; TEMP 98.6
[2022-08-17] MEDS ORDERED: ALBUTEROL HFA INHALER INHALATION STA (10:53)
[2022-08-17] MEDS ORDERED: ACETAMINOPHEN TAB 325 MG TAB PO STA (10:53)
--- NOTE | 2022-08-17 11:00 | ED ---
URI HPI - General Chief Complaint: Upper Respiratory Infection Stated Complaint: Cough,fever,SOB Time Seen by Provider: 08/17/22 10:43 Source: patient Mode of arrival: ambulatory Limitations: no limitations - History of Present Illness Initial Comments: This is a well-appearing 61-year-old female that presents with fever, cough and shortness of breath that started last night. States that her daughter is sick with similar symptoms. She does have a history of having coronavirus. She also has history of asthma. No nausea vomiting or diarrhea. No chest pain or abdominal pain. She is a nonsmoker. MD Complaint: fever, cough -: days(s) (1) Severity scale (1-10): 6 Quality: other (tight with deep breath or cough) Consistency: constant Improves With: nothing Context: sick contacts (family member) Associated Symptoms: fever, cough, shortness of breath Treatments Prior to Arrival: none - Related Data Home Medications Medication Instructions Recorded Confirmed Atorvastatin [Lipitor] 40 mg PO HS 02/27/22 03/03/22 Citalopram Hydrobromide [CeleXA] 20 mg PO HS 02/27/22 03/03/22 Estrogen,Con/M-Progest Acet 1 each PO HS 02/27/22 03/03/22 [Prempro 0.3 mg-1.5 mg Tablet] Levothyroxine Sodium [Synthroid] 50 mcg PO DAILY 02/27/22 03/03/22 Pantoprazole Sodium [Protonix] 20 mg PO HS 02/27/22 03/03/22 traZODone HCL 50 mg PO HS 02/27/22 03/03/22 Previous Rx's Medication Instructions Recorded Albuterol Inhaler [Ventolin Hfa 1 - 2 puff INHALATION Q6H PRN #1 08/17/22 Inhaler] dispenser Azithromycin [Zithromax Z Pack] 1 tab PO DIRECTED #6 tab 08/17/22 predniSONE 50 mg PO DAILY #5 tab 08/17/22 Allergies Allergy/AdvReac Type Severity Reaction Status Date / Time No Known Allergies Allergy Verified 08/17/22 10:21 Review of Systems ROS Statement: Those systems with pertinent positive or pertinent negative responses have been documented in the HPI. ROS Other: All systems not noted in ROS Statement are negative. Past Medical History Past Medical History: Asthma, Hyperlipidemia, Thyroid Disorder History of Any Multi-Drug Resistant Organisms: None Reported Past Surgical History: Section Past Psychological History: Depression Smoking Status: Never smoker Past Alcohol Use History: None Reported Past Drug Use History: None Reported General Exam Limitations: no limitations General appearance: alert, in no apparent distress Head exam: Present: atraumatic Eye exam: Present: normal appearance. Absent: scleral icterus, conjunctival injection, periorbital swelling ENT exam: Present: mucous membranes moist Neck exam: Absent: meningismus Respiratory exam: Present: rales (Right base). Absent: respiratory distress, wheezes, rhonchi, stridor, chest wall tenderness, accessory muscle use, decreased breath sounds Cardiovascular Exam: Present: normal rhythm, tachycardia, normal heart sounds GI/Abdominal exam: Present: soft. Absent: distended, tenderness, guarding, rebound, rigid Extremities exam: Present: normal capillary refill. Absent: tenderness, pedal edema Neurological exam: Present: alert, oriented X3 Psychiatric exam: Present: normal affect, normal mood Skin exam: Present: warm, dry, normal color. Absent: cyanosis, diaphoretic, petechiae, pallor Course Vital Signs 08/17/22 08/17/22 10:19 12:39 Temperature 98.6 F Pulse Rate 126 H 109 H Respiratory 18 18 Rate Blood Pressure 156/83 131/71 O2 Sat by Pulse 97 95 Oximetry Medical Decision Making - Medical Decision Making Patient presents with productive cough and shortness of breath since last night. Chest x-ray shows no acute process, no pleural effusion. Cardiac silhouette within normal limits. EKG shows normal sinus rhythm with ventricular rate 120. No ST elevation, normal axis. Troponin negative at 0.012. Patient denies any chest pain. D-dimer is negative. Patient with expiratory wheezes bilaterally, with rales at the right lung base. She was given albuterol treatments, Decadron and Rocephin for clinical pneumonia due to patient report of fever, evidence of leukocytosis with rales at the right lung base. Patient is a nonsmoker. Does have a childhood history of asthma. She was prescribed prednisone, albuterol and Z-Timur for clinical pneumonia with bronchitis. She was directed to follow up with her primary care doctor this week and return to the emergency room with any new or concerning symptoms including chest pain or difficulty breathing. She is agreeable to this plan of care. Case discussed with Dr. Allen. - Lab Data Result diagrams: 08/17/22 12:47 08/17/22 12:47 Lab Results 08/17/22 08/17/22 08/17/22 Range/Units 10:29 10:29 12:47 WBC 13.2 H (3.8-10.6) k/uL RBC 4.80 (3.80-5.40) m/uL Hgb 14.4 (11.4-16.0) gm/dL Hct 42.6 (34.0-46.0) % MCV 88.7 (80.0-100.0) fL MCH 30.1 (25.0-35.0) pg MCHC 33.9 (31.0-37.0) g/dL RDW 11.8 (11.5-15.5) % Plt Count 300 (150-450) k/uL MPV 7.5 Neutrophils % 86 % Lymphocytes % 7 % Monocytes % 4 % Eosinophils % 1 % Basophils % 0 % Neutrophils # 11.4 H (1.3-7.7) k/uL Lymphocytes # 0.9 L (1.0-4.8) k/uL Monocytes # 0.6 (0-1.0) k/uL Eosinophils # 0.2 (0-0.7) k/uL Basophils # 0.1 (0-0.2) k/uL PT (9.0-12.0) sec INR (<1.2) APTT (22.0-30.0) sec D-Dimer (<0.60) mg/L FEU Sodium (137-145) mmol/L Potassium (3.5-5.1) mmol/L Chloride (98-107) mmol/L Carbon Dioxide (22-30) mmol/L Anion Gap mmol/L BUN (7-17) mg/dL Creatinine (0.52-1.04) mg/dL Est GFR (CKD-EPI)AfAm (>60 ml/min/1.73 sqM) Est GFR (CKD-EPI)NonAf (>60 ml/min/1.73 sqM) Glucose (74-99) mg/dL Calcium (8.4-10.2) mg/dL Magnesium (1.6-2.3) mg/dL Total Bilirubin (0.2-1.3) mg/dL AST (14-36) U/L ALT (4-34) U/L Alkaline Phosphatase (38-126) U/L Troponin I (0.000-0.034) ng/mL Total Protein (6.3-8.2) g/dL Albumin (3.5-5.0) g/dL Coronavirus (PCR) Not Detected (Not Detectd) Influenza Type A RNA Not Detected (Not Detectd) Influenza Type B (PCR) Not Detected (Not Detectd) 08/17/22 08/17/22 08/17/22 Range/Units 12:47 12:47 12:47 WBC (3.8-10.6) k/uL RBC (3.80-5.40) m/uL Hgb (11.4-16.0) gm/dL Hct (34.0-46.0) % MCV (80.0-100.0) fL MCH (25.0-35.0) pg MCHC (31.0-37.0) g/dL RDW (11.5-15.5) % Plt Count (150-450) k/uL MPV Neutrophils % % Lymphocytes % % Monocytes % % Eosinophils % % Basophils % % Neutrophils # (1.3-7.7) k/uL Lymphocytes # (1.0-4.8) k/uL Monocytes # (0-1.0) k/uL Eosinophils # (0-0.7) k/uL Basophils # (0-0.2) k/uL PT 10.6 (9.0-12.0) sec INR 1.0 (<1.2) APTT 25.4 (22.0-30.0) sec D-Dimer 0.42 (<0.60) mg/L FEU Sodium 138 (137-145) mmol/L Potassium 3.7 (3.5-5.1) mmol/L Chloride 104 (98-107) mmol/L Carbon Dioxide 22 (22-30) mmol/L Anion Gap 12 mmol/L BUN 8 (7-17) mg/dL Creatinine 0.56 (0.52-1.04) mg/dL Est GFR (CKD-EPI)AfAm >90 (>60 ml/min/1.73 sqM) Est GFR (CKD-EPI)NonAf >90 (>60 ml/min/1.73 sqM) Glucose 130 H (74-99) mg/dL Calcium 8.8 (8.4-10.2) mg/dL Magnesium 1.8 (1.6-2.3) mg/dL Total Bilirubin 1.5 H (0.2-1.3) mg/dL AST 40 H (14-36) U/L ALT 69 H (4-34) U/L Alkaline Phosphatase 131 H (38-126) U/L Troponin I <0.012 (0.000-0.034) ng/mL Total Protein 7.3 (6.3-8.2) g/dL Albumin 4.5 (3.5-5.0) g/dL Coronavirus (PCR) (Not Detectd) Influenza Type A RNA (Not Detectd) Influenza Type B (PCR) (Not Detectd) - EKG Data EKG shows normal: sinus rhythm Rate: tachycardia (Ventricular rate 120, HI interval 0.166, QRS 0.91, QTC 0.410, normal axis) When compared to previous EKG there are: other (Old EKG 10/07/2021) Disposition Clinical Impression: Acute upper respiratory infection, Bronchitis Disposition: HOME SELF-CARE Condition: Good Instructions (If sedation given, give patient instructions): Upper Respiratory Infection (ED) Additional Instructions: Take antibiotics and steroids as prescribed. Use albuterol inhaler 1-2 puffs every 4 hours as needed for cough or difficulty breathing. Return to the emergency room if any new or concerning symptoms. Tylenol for any fevers or discomfort. Follow-up with your primary care doctor this week. Prescriptions: predniSONE 50 mg PO DAILY #5 tab Albuterol Inhaler [Ventolin Hfa Inhaler] 1 - 2 puff INHALATION Q6H PRN #1 dispenser PRN Reason: Wheezing Azithromycin [Zithromax Z Pack] 1 tab PO DIRECTED #6 tab Is patient prescribed a controlled substance at d/c from ED?: No Referrals: Rafat Oseguera MD [Primary Care Provider] - 1-2 days Time of Disposition: 13:49
--- NOTE | 2022-08-17 11:02 | XR ---
EXAMINATION TYPE: XR chest 2V DATE OF EXAM: 08/17/2022 COMPARISON: Chest x-ray January 07, 2022 HISTORY: Chest pain and shortness of breath TECHNIQUE: Frontal and lateral views of the chest are obtained. FINDINGS: There is no suspicious focal air space opacity, pleural effusion, or pneumothorax seen. T he cardiac silhouette size is stable and within normal limits. The osseous structures are intact. IMPRESSION: No acute process. No significant change from prior.
[2022-08-17] MEDS ORDERED: SODIUM CHLORIDE 0.9% 500 ML 500 ML IV STA (12:32)
[2022-08-17 12:56] LABS: Basophils # (A) 0.1 k/uL (0-0.2); Basophils % (A) 0 %; Eosinophils # (A) 0.2 k/uL (0-0.7); Eosinophils % (A) 1 %; HCT 42.6 % (34.0-46.0); HGB 14.4 gm/dL (11.4-16.0); Lymphocytes # (A) 0.9 k/uL (1.0-4.8); Lymphocytes % (A) 7 %; MCH 30.1 pg (25.0-35.0); MCHC 33.9 g/dL (31.0-37.0); MCV 88.7 fL (80.0-100.0); Mean Platelet Volume 7.5; Monocytes # (A) 0.6 k/uL (0-1.0); Monocytes % (A) 4 %; Neutrophils # (A) 11.4 k/uL (1.3-7.7); Neutrophils % (A) 86 %; Platelet Count 300 k/uL (150-450); RDW 11.8 % (11.5-15.5); WBC 13.2 k/uL (3.8-10.6)
[2022-08-17 13:21] LABS: Partial Thromboplastin Time 25.4 sec (22.0-30.0); Prothrombin Time 10.6 sec (9.0-12.0)
[2022-08-17 13:29] LABS: ALT 69 U/L (4-34); AST 40 U/L (14-36); African American GFR (CKD) >90 (>60 ml/min/1.73 sqM); Albumin 4.5 g/dL (3.5-5.0); Alkaline Phosphatase 131 U/L (38-126); Anion Gap 12 mmol/L; Blood Urea Nitrogen 8 mg/dL (7-17); Calcium 8.8 mg/dL (8.4-10.2); Carbon Dioxide 22 mmol/L (22-30); Chloride 104 mmol/L (98-107); Glucose 130 mg/dL (74-99); Magnesium 1.8 mg/dL (1.6-2.3); Non-African American GFR(CKD) >90 (>60 ml/min/1.73 sqM); Potassium 3.7 mmol/L (3.5-5.1); Sodium 138 mmol/L (137-145); Total Bilirubin 1.5 mg/dL (0.2-1.3); Total Protein 7.3 g/dL (6.3-8.2)
[2022-08-17] MEDS ORDERED: cefTRIAXone IN SWFI 1,000 MG/10 ML SYRINGE IVP STA (13:37)
[2022-08-17] MEDS ORDERED: ALBUTEROL NEBULIZED 2.5 MG/3 ML INHALATION STA (13:37)
[2022-08-17] MEDS ORDERED: DEXAMETHASONE SOD PHOSPHATE 10 MG/ML 1 ML VIAL IVP STA (13:37)
[2022-08-17 15:09] VITALS: BP 122/74; PULSE 102
== END 2022-08-17 15:09 | disposition home or self-care (01) ==
LOC: EC 09:58
DX: J06.9 Acute upper respiratory infection, unspecified (principal); J45.909 Unspecified asthma, uncomplicated; E78.5 Hyperlipidemia, unspecified; E07.9 Disorder of thyroid, unspecified; F32.A Depression, unspecified; Z79.51 Long term (current) use of inhaled steroids; Z79.890 Hormone replacement therapy; Z79.899 Other long term (current) drug therapy; Z20.822 Contact with and (suspected) exposure to COVID-19
CPT/HCPCS: 36415; 94640; 93005; 85379; 80053; 83735; 84484; 85025; 85610; 85730; 87502; 87635; 71046; 99285; 96374; 96375; 96361 ×2; J1100; J0696

== ENCOUNTER 2022-10-23 14:59 | Emergency (ER) | payer OTHER ==
[2022-10-23 15:04] VITALS: TEMP 101.5
[2022-10-23] MEDS ORDERED: IBUPROFEN 600 MG TAB PO STA (15:26)
--- NOTE | 2022-10-23 15:30 | XR ---
EXAMINATION TYPE: XR chest 2V DATE OF EXAM: 10/23/2022 COMPARISON: 08/17/2022 HISTORY: Cough TECHNIQUE: Frontal and lateral views of the chest are obtained. FINDINGS: There is no focal air space opacity, pleural effusion, or pneumothorax seen. The cardiac silhouette size is within normal limits. The osseous structures are intact. IMPRESSION: No acute cardiopulmonary process.
[2022-10-23] MEDS ORDERED: ONDANSETRON 4 MG ODT STARTER PACK 2 TAB BTL PO STA (16:00)
--- NOTE | 2022-10-23 16:05 | ED ---
General Adult HPI - General Chief complaint: Upper Respiratory Infection Stated complaint: Fever,Cough Time Seen by Provider: 10/23/22 15:20 Source: patient Mode of arrival: ambulatory Limitations: no limitations - History of Present Illness Initial comments: 62-year-old female with past history of mild intermittent asthma, hypertension who presents to the emergency room with a cough since Wednesday. States that she has had nasal congestion, nonproductive cough and fevers with body aches. Admits to several sick contacts in her family with similar symptoms. She denies any chest pain. No headaches or visual changes. No neck pain. Denies any shortness of breath no abdominal pain. Admits nausea without vomiting. No diarrhea. She did not receive a flu shot this year. She has been using her inhaler intermittently with some improvement in her symptoms. She has not been taking Motrin or Tylenol as she was attempting to see if her fever would break. No other alleviating, precipitating or modifying factors - Related Data Home Medications Medication Instructions Recorded Confirmed Atorvastatin [Lipitor] 40 mg PO HS 02/27/22 03/03/22 Citalopram Hydrobromide [CeleXA] 20 mg PO HS 02/27/22 03/03/22 Estrogen,Con/M-Progest Acet 1 each PO HS 02/27/22 03/03/22 [Prempro 0.3 mg-1.5 mg Tablet] Levothyroxine Sodium [Synthroid] 50 mcg PO DAILY 02/27/22 03/03/22 Pantoprazole Sodium [Protonix] 20 mg PO HS 02/27/22 03/03/22 traZODone HCL 50 mg PO HS 02/27/22 03/03/22 Previous Rx's Medication Instructions Recorded Albuterol Inhaler [Ventolin Hfa 1 - 2 puff INHALATION Q6H PRN #1 08/17/22 Inhaler] dispenser Azithromycin [Zithromax Z Pack] 1 tab PO DIRECTED #6 tab 08/17/22 predniSONE 50 mg PO DAILY #5 tab 08/17/22 Albuterol Sulfate [Proair Hfa] 1 - 2 puff INHALATION Q4HR PRN 10/23/22 #8.5 gm Ondansetron Odt [Zofran Odt] 4 mg PO Q8HR PRN #20 tab 10/23/22 Allergies Allergy/AdvReac Type Severity Reaction Status Date / Time No Known Allergies Allergy Verified 08/17/22 10:21 Review of Systems ROS Statement: Those systems with pertinent positive or pertinent negative responses have been documented in the HPI. ROS Other: All systems not noted in ROS Statement are negative. Past Medical History Past Medical History: Asthma, Hyperlipidemia, Thyroid Disorder History of Any Multi-Drug Resistant Organisms: None Reported Past Surgical History: Section Past Psychological History: Depression Smoking Status: Never smoker Past Alcohol Use History: None Reported Past Drug Use History: None Reported General Exam Limitations: no limitations General appearance: alert, in no apparent distress Head exam: Present: atraumatic, normocephalic, normal inspection Eye exam: Present: normal appearance, PERRL, EOMI. Absent: scleral icterus, conjunctival injection, periorbital swelling ENT exam: Present: normal exam, mucous membranes moist Neck exam: Present: normal inspection. Absent: tenderness, meningismus, lymphadenopathy Respiratory exam: Present: normal lung sounds bilaterally. Absent: respiratory distress, wheezes, rales, rhonchi, stridor Cardiovascular Exam: Present: tachycardia, normal heart sounds. Absent: systolic murmur, diastolic murmur, rubs, gallop, clicks GI/Abdominal exam: Present: soft, normal bowel sounds. Absent: distended, tenderness, guarding, rebound, rigid Extremities exam: Present: normal inspection, full ROM, normal capillary refill. Absent: tenderness, pedal edema, joint swelling, calf tenderness Back exam: Present: normal inspection Neurological exam: Present: alert, oriented X3, CN II-XII intact Psychiatric exam: Present: normal affect, normal mood Skin exam: Present: warm, dry, intact, normal color. Absent: rash Course Vital Signs 10/23/22 10/23/22 15:01 16:16 Temperature 101.5 F H Pulse Rate 120 H 80 Respiratory 22 18 Rate Blood Pressure 175/82 134/70 O2 Sat by Pulse 96 96 Oximetry Medical Decision Making - Medical Decision Making Upon arrival patient was placed in room 20. A thorough history and physical exam was performed. Patient was swabbed for influenza and Covid while in triage. She did have a chest x-ray performed. Swabs are reviewed and the patient is positive for influenza A. Her chest x-ray demonstrates no acute process. He was given 600 mg of Motrin for fever control. After evaluation the patient is resting comfortably. I did discuss treatment options. Patient will be prescribed an albuterol inhaler as her one at home may be expiring. She'll also be given a prescription for Zofran for nausea. She is to increase fluid intake. Alternates taking Motrin Tylenol for fever and return for any new or worsening symptoms. Patient agreeable to treatment plan she was discharged home in stable condition - Lab Data Lab Results 10/23/22 Range/Units 15:07 Influenza Type A RNA Detected H (Not Detectd) Influenza Type B (PCR) Not Detected (Not Detectd) Disposition Clinical Impression: Fever, Influenza A Disposition: HOME SELF-CARE Condition: Stable Instructions (If sedation given, give patient instructions): Influenza (ED) Additional Instructions: Please alternate taking Motrin (600 mg) with Tylenol (650 mg) every 4 hours. Take the Zofran every 8 hours as needed for nausea. Increase fluid intake and return for any new or worsening symptoms. Prescriptions: Albuterol Sulfate [Proair Hfa] 1 - 2 puff INHALATION Q4HR PRN #8.5 gm PRN Reason: difficulty in breathing Ondansetron Odt [Zofran Odt] 4 mg PO Q8HR PRN #20 tab PRN Reason: Nausea Is patient prescribed a controlled substance at d/c from ED?: No Referrals: Rafat Oseguera MD [Primary Care Provider] - 1-2 days Time of Disposition: 16:06
[2022-10-23 17:00] VITALS: BP 134/70; PULSE 80; RESP 18
== END 2022-10-23 16:21 | disposition home or self-care (01) ==
LOC: SUPCPDRO 14:59 → EC 14:59
DX: J10.1 Influenza due to other identified influenza virus with other respiratory manifestations (principal); J45.909 Unspecified asthma, uncomplicated; E78.5 Hyperlipidemia, unspecified; E07.9 Disorder of thyroid, unspecified; F32.A Depression, unspecified; Z79.899 Other long term (current) drug therapy; Z79.890 Hormone replacement therapy; Z20.822 Contact with and (suspected) exposure to COVID-19
CPT/HCPCS: 87502; 87635; 71046; 99283; S0119

== ENCOUNTER → 2022-11-17 | Day surgery (SDC) | payer OTHER ==
--- NOTE | 2022-11-17 09:14 | CT ---
EXAMINATION TYPE: CT chest wo con CT DLP: 514 mGycm, Automated exposure control for dose reduction was used. DATE OF EXAM: 11/17/2022 9:03 AM COMPARISON: Chest radiograph 10/23/2022. CLINICAL INDICATION:Female, 62 years old with history of J18.9 PNEUMONIA, UNSPECIFIED ORGANISM TECHNIQUE: Multiple axial images were obtained through the chest without IV contrast. Lack of IV or o ral contrast limits evaluation of solid and hollow organ viscera. FINDINGS: LUNGS/ PLEURA: Minimal biapical pleural parenchymal scarring. Patchy ground glass reticular opacity w ithin the left upper lobe (series 4, image 18). 3 mm groundglass pulmonary nodule in the left upper l obe (series 4, image 28). 3 mm pulmonary nodule within the left upper lobe (series 4, image 28). Righ t lower lobe 2 mm pulmonary nodule (series 4, image 36). No pneumothorax or effusion. AIRWAY: Patent and unremarkable.. HEART: Size within normal limits. No pericardial effusion. MEDIASTINUM: No gross evidence of adenopathy. VASCULATURE: No aortic aneurysm. MUSCULOSKELETAL: No acute osseous abnormalities SOFT TISSUES/LYMPH NODES: Unremarkable. LOWER NECK: No significant findings. UPPER ABDOMEN: Colonic diverticulosis without visualized acute diverticulitis. IMPRESSION: 1. Patchy groundglass reticular opacity within the left upper lobe likely representing an infectious/ inflammatory process. 2. Few pulmonary nodules measuring up to 3 mm. Incidentally detected nodules of this size are general ly considered benign in individuals without concomitant risk factors such as smoking history or other risk factors for malignancy. Follow up imaging is generally not performed, in accordance with [employer] guidelines. In high-risk patients, a [address] thorax can be considered.
== END ==
LOC: RADCTMAIN 08:34
PROVIDERS: ATTEND Family Medicine
DX: J18.9 Pneumonia, unspecified organism (principal)
CPT/HCPCS: 71250

== ENCOUNTER 2023-01-27 11:15 | Day surgery (SDC) | payer OTHER ==
[~2023-01-27 11:15] MED LIST changes: +DEXAMETHASONE SOD PHOSPHATE 4 MG/ML 1 ML VIAL IV ONE; +HYDROmorphone 0.5 MG/0.5 ML SYRINGE IVP PRN; -LIDOCAINE 1% (10MG/ML) FOR IV START INTRADERMA PRN; +MIDAZOLAM 2 MG/2 ML VIAL IV PRN; +ONDANSETRON 4 MG/2 ML VIAL IVP ONE; -ONDANSETRON 4 MG/2 ML VIAL IVP PRN; +Pre Op ABX Message 1 EACH MISC MISCELLANE ONE; +SCOPOLAMINE 1 MG/72 HR PATCH TRANSDERM ONE
[2023-01-27 11:44] VITALS: TEMP 99
[2023-01-27] MEDS ORDERED: MIDAZOLAM 2 MG/2 ML VIAL ONE (12:19)
[2023-01-27] MEDS ORDERED: LIDOCAINE 2% INJ 20 MG/ML (2 ML VIAL) ONE (12:19)
[2023-01-27] MEDS ORDERED: GLYCOPYRROLATE 0.2 MG/ML 2 ML VIAL ONE (12:19)
[2023-01-27] MEDS ORDERED: PROPOFOL 10 MG/ML 20 ML VIAL IV ONE (12:19)
[2023-01-27] MEDS ORDERED: fentaNYL (PF) 50 MCG/ML 2 ML AMP ONE (12:19)
[2023-01-27] MEDS ORDERED: BUPIVACAINE (PF) 0.5% 30 ML VIAL SQ ONE ×3 (12:50)
[2023-01-27 13:23] VITALS: RESP 16
--- NOTE | 2023-01-27 13:40 | P.OP ---
Date of Procedure: 01/27/23 Preoperative Diagnosis: Right knee posterior horn medial meniscus tear and medial and patellofemoral arthritis Postoperative Diagnosis: 1. Right knee degenerative posterior horn medial meniscus tear 2. Right knee partial thickness cartilage loss medial femoral condyle, medial tibial plateau, patella, and femoral trochlea Procedure(s) Performed: 1. Right knee arthroscopy with partial medial meniscectomy Anesthesia: SUDHIR Surgeon: David Iverson Cosmetic Surgeon #1: Lea Kelly Estimated Blood Loss (ml): 10 IV fluids (ml): 600 Pathology: none sent Condition: stable Disposition: PACU Indications for Procedure: The patient is very pleasant. She healthy 62-year-old female who has had a long-standing history of problems with her right knee. She had x-rays and an MRI which showed mild arthritic changes and a torn medial meniscus. She had mostly medial joint line tenderness and mechanical symptoms. She failed nonsurgical treatment and requested proceeding with surgery. We both agreed to proceed with arthroscopy to address her meniscus pathology. She understands the limitations of arthroscopy in treating arthritis and if the majority of her symptoms are coming from arthritic changes she may have continued pain. We discussed the potential risks and complications at length including but certainly not limited to risks from anesthesia, superficial infection, deep infection, iatrogenic joint damage, progression of arthritis, damage to local blood vessels or nerves, continued or worsened pain, need for further surgery, DVT, PE, and possibly loss of life or limb. The patient voiced her understanding these potential complications also acknowledging less common complications. She provided both her verbal and written consent to go forward with surgery. Description of Procedure: The patient was identified in preoperative holding and the correct right leg was marked with my initials. I reviewed the consent form with the patient and all of her questions were answered. She was brought back to the operating room. She was positioned on the OR table where general anesthetic and preoperative antibiotics were given. A tourniquet was applied to the proximal aspect of the right leg. The thigh was secured in a leg luna. The left leg was padded and the foot of the table was dropped. The right leg was then prepped and draped in the standard sterile fashion. Prior to starting surgery timeout was performed identifying the correct patient, operative extremity, and procedure. The patient's leg was then elevated, exsanguinated, and the tourniquet was inflated to 250 mmHg. I began by outlining the anterior anatomy of the knee followed by a standard anterolateral and anteromedial portal. The anterolateral portal was made with a scalpel and the arthroscope was gently inserted up into the subpatellar pouch. On inspection of the undersurface of the patella and femoral trochlea there is partial-thickness cartilage loss. The arthroscope was then brought down to the medial gutter into the medial compartment of the knee. A spinal needle was placed over the marking for the anteromedial portal verify trajectory of the portal site. The anteromedial portal was then made with a scalpel and a blunt probe was inserted into the joint. There was a complex degenerative tear involving the posterior horn of the medial meniscus as well as these partial- thickness cartilage loss of the femoral trochlea and tibial plateau. The medial meniscus tear was then contoured to a stable rim using a combination of a straight biter and an arthroscopic shaver. After debriding the medial meniscus was again probed and found to be stable. The probe and the arthroscope was then placed into the notch and the ACL was probed and found to be intact. The leg was placed in the figure 4 position and the lateral compartment was Valley weighted and found to be free of arthritic changes or meniscus pathology. The arthroscope was then brought down the lateral gutter and into the popliteal hiatus and there were no loose bodies. At this point the arthroscope and an arthroscopic shaver were placed in the supra patellar pouch and the fluid was removed from the joint. All arthroscopic Dickinson was then removed. Both portal sites were closed with a single nylon suture. Local anesthetic was injected along the portal sites. A sterile dressing followed by an Anatoly wrap was applied. The patient was awoken from her anesthetic, transferred from the OR table to a gurney, and brought to recovery having tolerated the procedure well. Plan: The patient is going to discharge home as an outpatient. She can weight- bear as tolerated on her right leg. She will follow-up in the office in 2 weeks for a wound check. She'll be given pain medications and aspirin for DVT prophylaxis.
[2023-01-27 14:19] VITALS: BP 122/79; PULSE 102
== END 2023-01-27 14:56 | disposition home or self-care (01) ==
LOC: OR 11:15
PROVIDERS: ATTEND Orthopaedic Surgery
DX: S83.241A Other tear of medial meniscus, current injury, right knee, initial encounter (principal); M17.11 Unilateral primary osteoarthritis, right knee; I10 Essential (primary) hypertension; E78.5 Hyperlipidemia, unspecified; Z88.8 Allergy status to other drugs, medicaments and biological substances; Z98.891 History of uterine scar from previous surgery; Z82.49 Family history of ischemic heart disease and other diseases of the circulatory system; Z86.59 Personal history of other mental and behavioral disorders; X58.XXXA Exposure to other specified factors, initial encounter
CPT/HCPCS: 29881; J2250; J1100; J2405; J3010; J2704; J2001

== ENCOUNTER → 2023-04-30 | Outpatient (CLI) | payer OTHER ==
--- NOTE | 2023-04-30 18:48 | CT ---
EXAMINATION TYPE: CT chest w con DATE OF EXAM: 04/30/2023 COMPARISON: 11/17/2022 HISTORY: Abnormal lung fletcher. CT DLP: 346.9 mGycm, Automated exposure control for dose reduction was used. CONTRAST: Performed injected with 100ml mL of Isovue 300. TECHNIQUE: Axial images were obtained at 5 mm thick sections. Reconstructed images are reviewed on [employer] computer in the coronal plane. FINDINGS: Portion of the thyroid visualized is normal. There is a 0.4 cm density periphery right apex. A punctate density is in the lateral left upper lung field. Series 4 image 29. No enlarged mediastinal or hilar adenopathy is evident. The ascending aorta diameter at the level o f the main pulmonary artery is 3.2 cm. The main pulmonary artery diameter at the bifurcation is 2.[address] sections are obtained through the upper abdomen. Abdomen is essentially unremarkable. IMPRESSIONS: 1. Stable appearance CT chest. No enlarging or new nodules identified. No suspicious infiltrates. Fol low-up exam in one year to confirm stability is recommended.
== END | disposition home or self-care (01) ==
LOC: RADCTMAIN 09:22
PROVIDERS: ATTEND Internal Medicine Critical Care Medicine
DX: R91.8 Other nonspecific abnormal finding of lung field (principal)
CPT/HCPCS: 71260; Q9967

== ENCOUNTER → 2023-07-19 | Outpatient (CLI) | payer OTHER ==
--- NOTE | 2023-07-19 13:48 | MM ---
Reason for Exam: Screening (asymptomatic). Last screening mammogram was performed 12 month(s) ago. Patient History: Menarche at age 12. First Full-Term at age 20. Postmenopausal. Patient has history of breast feeding. Currently using Estrogen, for 1 month. Currently using Progesterone, for 1 month. Risk Values: Bridgette 5 year model risk: 1.3%. NCI Lifetime model risk: 5.3%. Prior Study Comparison: 05/06/2021 Bilateral Diagnostic Mammogram, [facility]. 10/29/2021 Bilateral Diagnostic Mammogram, [facility]. 07/08/2022 Bilateral MG 3D screening mammo w/cad, [facility]. Tissue Density: The breast tissue is heterogeneously dense. This may lower the sensitivity of mammography. Findings: Analyzed By CAD. There is no suspicious group of microcalcifications or new suspicious mass. Overall Assessment: Negative, BI-RAD 1 Management: Screening Mammogram of both breasts in [address] [facility] will attempt to contact patient to return for supplemental views and ultrasound if indicated. Patient should continue monthly self-breast exams. A clinical breast exam by your physician is recommended on an annual basis. This exam should not preclude additional follow-up of suspicious palpable abnormalities. Note on Bridgette scores and lifetime risk: 1. A Bridgette score greater than 3% is considered moderate risk. If this is the case, consider specialist referral to assess eligibility for a risk reducing agent. 2. If overall lifetime risk for the development of breast cancer is 20% or higher, the patient may qualify for future screening with alternating mammogram and breast MRI. Electronically signed and approved by: Tk Weiner DO
== END | disposition home or self-care (01) ==
LOC: RADMAMWWP 11:51
PROVIDERS: ATTEND Obstetrics & Gynecology
DX: Z12.31 Encounter for screening mammogram for malignant neoplasm of breast (principal); Z78.0 Asymptomatic menopausal state
CPT/HCPCS: 77063; 77067

== ENCOUNTER → 2023-08-25 | Outpatient (CLI) | payer OTHER ==
[2023-08-25 09:02] VITALS: BP 140/84; PULSE 83; RESP 16; TEMP 98.9
--- NOTE | 2023-08-25 15:14 | P.PAINPG ---
PQRS Measure Charge Sheet Comment: HISTORY OF PRESENT ILLNESS: A 62 yr old as a referral from Dr Iverson presents today w severe and chronic R knee pain x 6 mo secondary to DDD, spondylosis and facet arthropathy without myelopathy for evaluation. Pt states pain level is provoked at 7/10 in intensity, constant, localized in the R knee, stabbing in character without shooting pain. Pain is provoked by walking or weight bearing activity. Pain is alleviated by ice, medications (Ibu), topical, elevation and rest. PMH: OA, MDD, Asthma, Hyperlipidemia, Hypothyroid Disorder PSH: R Knee Arthroscopy (2022), C Section SH: Negative x3 FH: Non contributory All: See list Meds: See list REVIEW OF ORGAN SYSTEMS: CONSTITUTIONAL: No fevers or chills. No recent weight loss. NEUROLOGICAL: + numbness and tingling along the distal extremities. No seizure disorders or headaches. MUSCULOSKELETAL: + pain PSYCHIATRIC: Denies current depression or suicidal thoughts. Physical Examinations : Constitutional : Cooperative , not in acute distress . Neurologic : Cranial nerve II to XII intact. No focal neurological deficits. Psychiatric : alert & oriented x 3. Matching mood & appropriate affect. Judgment & insight intact. Musculoskeletal : Cervical Spine Motor strength in the deltoid and biceps: Normal right side. Normal Left side Motor strength biceps and the wrist extensors: Normal right side . Normal left side Motor strength in the triceps muscle: Normal right side. Normal left side Deep tendon reflexes: Normal at the biceps. Normal at Brachioradialis. Normal at triceps Vertebral body tenderness to deep palpation over Cervical facet loading test: positive bilaterally Spurling test: positive bilaterally Neck distraction test: positive bilaterally Royer sign: positive bilaterally Lumbar spine +R knee diffuse TTP, well-healed incisional scars Motor strength lower extremities ,thigh and legs 5/5 Right side , 5/5 Left side Deep tendon reflexes : Normal Knee Jerk. Normal Ankle Jerk Vertebral body tenderness over Casper Test positive Lumbar facet Loading Test: positive Right / positive Left Range of motion of the lumbar spine Flexion 30 degrees, extension 10 degrees Straight Leg Raise test: Left/ Right positive at degree Meseret test: positive right / positive left. Severe tenderness over the Sacroiliac joint on the Right / Left sides Gaenslen test: positive bilaterally Seated flexion test: positive bilaterally. Sacral spine : Severe tenderness over the Sacroiliac joint: right side / left side Range of motion: Flexion of the lumbar spine <60 degrees Range of motion: Extension of the lumbar spine <20 degrees Gaenslen's Test positive Curtis's Test positive Meseret test: positive right side / left side Thigh Thrust Test Sacral Thrust Test Imaging: MRI noncontrast of the right knee from 01/11/23 reviewed Assessment/ Plan : R Knee Arthropathy Recommendation of PT x 6 wks M25.569 Risks, benefits discussed and patient verbalized understanding. Admits to anti- coagulant use or medical history of diabetes. Protocol for discontinuation/ continuation of medications yenny procedure discussed. Minimal anesthesia provided, if clinically indicated, consisting of Versed and Fentanyl. All questions answered. I have spent greater than 30 minutes on patient care today. Dr Durbin was available by phone for the evaluation of this patient. The time was used to review the medical records including relevant urine studies and Prescription history (MAPs), review of the available imaging, evaluation and examination of the patient, coordination of care with the medical staff and if applicable referring physicians, as well as creation of the medical record Home Medications: Ambulatory Orders Atorvastatin [Lipitor] 40 mg PO HS 02/27/22 Levothyroxine Sodium [Synthroid] 50 mcg PO DAILY 02/27/22 Pantoprazole Sodium [Protonix] 40 mg PO HS 02/27/22 traZODone HCL 50 mg PO HS 02/27/22 Albuterol Inhaler [Ventolin Hfa Inhaler] 1 - 2 puff INHALATION Q6H PRN #1 dispenser 08/17/22 Ondansetron Odt [Zofran Odt] 4 mg PO Q8HR PRN #20 tab 10/23/22 Escitalopram [Lexapro] 20 mg PO HS 12/04/22 Estrogen,Con/M-Progest Acet [Prempro 0.45-1.5 mg Tablet] 1 each PO HS 12/04/22 hydroCHLOROthiazide [Hydrodiuril] 25 mg PO DAILY 12/04/22 Unk Multi Vitamin 1 tab PO DAILY 01/22/23 Unk Vitamin C 1 tab PO DAILY 01/22/23 Aspirin 81 mg PO BID 30 Days #60 tab 01/27/23 Docusate [Colace] 100 mg PO BID #60 capsule 01/27/23 HYDROcodone/APAP 5-325MG [Alma 5-325] 1 tab PO Q6HR PRN 7 Days #20 tab 01/27/23 Controlled Substance Measures - Controlled Substance Measures Is patient prescribed a controlled substance at discharge?: No
== END ==
LOC: PNWHC3 08:04
PROVIDERS: ATTEND Specialist
DX: M71.371 Other bursal cyst, right ankle and foot (principal); M19.90 Unspecified osteoarthritis, unspecified site; F32.9 Major depressive disorder, single episode, unspecified; J45.909 Unspecified asthma, uncomplicated; E78.5 Hyperlipidemia, unspecified; E07.9 Disorder of thyroid, unspecified; Z96.651 Presence of right artificial knee joint; Z79.82 Long term (current) use of aspirin; Z79.51 Long term (current) use of inhaled steroids; Z79.890 Hormone replacement therapy
CPT/HCPCS: 99211

== ENCOUNTER → 2024-05-01 | Outpatient (CLI) | payer MEDICARE, OTHER ==
--- NOTE | 2024-05-01 11:25 | CT ---
EXAMINATION TYPE: CT chest wo con CT DLP: 533 mGycm, Automated exposure control for dose reduction was used. DATE OF EXAM: 05/01/2024 10:55 AM COMPARISON: CT chest 04/30/2023, 11/17/2022. CLINICAL INDICATION:Female, 63 years old with history of R91.8 ABNORMAL LUNG FIELD; PHH, pulmonary no dule TECHNIQUE: Multiple axial images were obtained through the chest without IV contrast. Lack of IV or o ral contrast limits evaluation of solid and hollow organ viscera. . Coronal and sagittal reformats re viewed. FINDINGS: LUNGS/ PLEURA: No pleural effusion, pneumothorax, or focal consolidation. Minimal biapical pleural-p arenchymal scarring. Stable groundglass 4 mm opacity within the right apex (series 4, image 12). Stab le 2.6 mm nodular opacity within the left mid lung (series 4, image 28). No new or enlarging pulmonar y nodules or masses. Resolution of previously seen reticular opacities within the left upper lobe. AIRWAY: Patent and unremarkable.. HEART: Size within normal limits. No pericardial effusion. Aortic valvular calcifications. MEDIASTINUM: No gross evidence of adenopathy. VASCULATURE: No aortic aneurysm. MUSCULOSKELETAL: No acute osseous abnormalities SOFT TISSUES/LYMPH NODES: Unremarkable. LOWER NECK: No significant findings. UPPER ABDOMEN: No significant findings. IMPRESSION: Overall stable examination with no new or enlarging pulmonary nodules.
== END | disposition home or self-care (01) ==
LOC: RADCTMAIN 10:39
PROVIDERS: ATTEND Internal Medicine Critical Care Medicine
DX: R91.8 Other nonspecific abnormal finding of lung field (principal)
CPT/HCPCS: 71250

== ENCOUNTER → 2024-09-15 | Outpatient (CLI) | payer MEDICARE ==
--- NOTE | 2024-09-16 22:07 | US ---
EXAMINATION TYPE: US pelvis complete transvag DATE OF EXAM: 09/15/2024 COMPARISON: NONE CLINICAL INDICATION: Female, 63 years old with history of N95.0 POSTMENOPAUSAL BLEEDING; Post menopau claritza bleeding per order-pt states she has had brown discharge x 1 week. Hx 2 C sections, . TECHNIQUE: Transvaginal (TV) and Transabdominal (TA) . Transabdominal grayscale sonographic images of the pelvis were acquired. Transvaginal sonographic im ages were medically necessary to better assess the following anatomy: Endometrium Doppler imaging: Not performed. FINDINGS: Date of LMP: at 48 years of age EXAM MEASUREMENTS: Uterus: 8.4 x 4.3 x 3.2 cm Endometrial Stripe: 0.58 cm Right Ovary: Not seen Left Ovary: Not seen 1. Uterus: Anteverted Complex area with posterior shadowing seen within cervix= 0.9 x 0.8 x 0.6 cm . 2. Endometrium: 0.57 cm-?borderline for postmenopausal with bleeding. Anechoic fluid seen within endometrium= 3.5 x 2.3 x 1.9 cm. 3. Right Ovary: Not seen 4. Left Ovary: Not seen 5. Bilateral Adnexa: Appear wnl 6. Posterior cul-de-sac: Appears wnl IMPRESSION: 1. Fluid-filled endometrial canal. Endometrial thickness may be borderline enlarged. 2. Shadowing complex area within the cervix of uncertain etiology. Additional workup recommended. [facility], , 09/16/2024 10:05 PM
== END | disposition home or self-care (01) ==
LOC: RADUSWWP 12:30
PROVIDERS: ATTEND Family Medicine
DX: N95.0 Postmenopausal bleeding (principal)
CPT/HCPCS: 76830; 76856

== ENCOUNTER → 2024-10-24 | Outpatient (CLI) | payer MEDICARE ==
--- NOTE | 2024-10-24 09:52 | MM ---
Reason for Exam: Screening (asymptomatic). Last mammogram was performed 1 year(s) and 3 month(s) ago. Patient History: Menarche at age 12. First Full-Term at age 20. Postmenopausal. Patient has history of breast feeding. Currently using Estrogen, for 1 month. Currently using Progesterone, for 1 month. Risk Values: Bridgette 5 year model risk: 1.4%. NCI Lifetime model risk: 4.9%. Prior Study Comparison: 10/29/2021 Bilateral Diagnostic Mammogram, [facility]. 07/08/2022 Bilateral MG 3D screening mammo w/cad, [facility]. 07/19/2023 Bilateral MG 3D screening mammo w/cad, [facility]. Tissue Density: The breasts are heterogeneously dense, which may obscure small masses. Findings: Analyzed By CAD. There is no suspicious group of microcalcifications or new suspicious mass in either breast. Benign calcifications. Overall Assessment: Benign, BI-RAD 2 Management: Screening Mammogram of both breasts in 1 year. . Patient should continue monthly self-breast exams. A clinical breast exam by your physician is recommended on an annual basis. This exam should not preclude additional follow-up of suspicious palpable abnormalities. Note on Bridgette scores and lifetime risk: 1. A Bridgette score greater than 3% is considered moderate risk. If this is the case, consider specialist referral to assess eligibility for a risk reducing agent. 2. If overall lifetime risk for the development of breast cancer is 20% or higher, the patient may qualify for future screening with alternating mammogram and breast MRI. [facility], , 10/24/2024 9:49 AM. Electronically signed and approved by: Ata Edge M.D. Radiologis
== END | disposition home or self-care (01) ==
LOC: RADMAMWWP 08:10
PROVIDERS: ATTEND Obstetrics & Gynecology
DX: Z12.31 Encounter for screening mammogram for malignant neoplasm of breast (principal); Z78.0 Asymptomatic menopausal state; R92.333 Mammographic heterogeneous density, bilateral breasts
CPT/HCPCS: 77063; 77067

== ENCOUNTER → 2025-01-01 | Outpatient (CLI) | payer MEDICARE ==
--- NOTE | 2025-01-01 15:17 | CT ---
EXAMINATION TYPE: CT chest wo con DATE OF EXAM: 01/01/2025 2:55 PM COMPARISON: 05/01/2024 CLINICAL INDICATION: Female, 64 years old with history of R91.8 OTHER NONSPECIFIC ABNORMAL FINDING OF LUNG F; PHH, Pulmonary nodules TECHNIQUE: Multiple axial images were obtained through the chest. Sagittal and coronal reformats were created for review. MIP was performed on a separate workstation. Contrast used: mL of (None if empty) Oral contrast used: (None if empty) CT DLP: 287.2 mGycm, Automated exposure control for dose reduction was used. FINDINGS: LUNGS/ PLEURA: No pleural effusion, pneumothorax, or focal consolidation. Minimal biapical pleural-parenchymal scarring. Stable 4 mm opacity within the right apex series 3 image 16. Stable 3 mm nodular opacity within the left mid lung series 3 image 31 No new or enlarging pulmonary nodules or masses. AIRWAY: Patent and unremarkable.. HEART: Size within normal limits. No pericardial effusion. Aortic valvular calcifications. No signifi cant coronary artery calcifications. MEDIASTINUM: No gross evidence of adenopathy. VASCULATURE: No aortic aneurysm. MUSCULOSKELETAL: No acute osseous abnormalities SOFT TISSUES/LYMPH NODES: Unremarkable. LOWER NECK: No significant findings. UPPER ABDOMEN: No significant findings. IMPRESSION: 1. Stable nodules no new or enlarging pulmonary nodules. 2. No evidence for acute process. [facility], , 01/01/2025 3:15 PM
== END | disposition home or self-care (01) ==
LOC: RADCTMAIN 14:27
PROVIDERS: ATTEND Internal Medicine Critical Care Medicine
DX: R91.8 Other nonspecific abnormal finding of lung field (principal)
CPT/HCPCS: 71250

== ENCOUNTER 2025-03-01 12:53 | Emergency (ER) | payer MEDICARE ==
[2025-03-01 13:05] VITALS: RESP 18; TEMP 97.9
[2025-03-01 13:22] LABS: Appearance,Urine Clear (Clear); Bilirubin,Urine Negative (Negative); Blood,Urine Negative (Negative); Color,Urine Light Yellow; Glucose,Urine (UA) Negative (Negative); Ketones,Urine Negative (Negative); Leukocyte Esterase,Urine Negative (Negative); Nitrite,Urine Negative (Negative); PH, Urine 5.5 (5.0-8.0); Protein,Urine Negative (Negative); Specific Gravity,Urine 1.013 (1.001-1.035); Urobilinogen,Urine <2.0 mg/dL (<2.0)
[2025-03-01 13:47] LABS: Basophils # (A) 0.02 10*3/uL (0.00-0.10); Basophils % (A) 0.3 %; Eosinophils # (A) 0.24 10*3/uL (0.04-0.35); HCT 46.1 % (37.2-46.3); HGB 15.6 g/dL (12.0-15.0); Lymphocytes # (A) 2.08 10*3/uL (0.90-5.00); Lymphocytes % (A) 26.4 %; MCH 28.9 pg (27.0-32.0); MCHC 33.8 g/dL (32.0-37.0); MCV 85.4 fL (80.0-97.0); Mean Platelet Volume 9.3 fL (9.5-12.2); Monocytes # (A) 0.84 10*3/uL (0.20-1.00); Monocytes % (A) 10.6 %; Neutrophils # (A) 4.67 10*3/uL (1.80-7.70); Neutrophils % (A) 59.2 %; Platelet Count 369 10*3/uL (140-440); RDW 12.4 % (11.5-14.5); WBC 7.89 10*3/uL (4.50-10.00)
[2025-03-01 13:58] LABS: ALT 41 U/L (4-34); AST 32 U/L (14-36); African American GFR (CKD) >90 (>60 ml/min/1.73 sqM); Albumin 4.9 g/dL (3.5-5.0); Alkaline Phosphatase 119 U/L (38-126); Anion Gap 16 mmol/L; Blood Urea Nitrogen 14 mg/dL (7-17); Calcium 9.9 mg/dL (8.4-10.2); Carbon Dioxide 21 mmol/L (22-30); Chloride 101 mmol/L (98-107); Glucose 101 mg/dL (74-99); Non-African American GFR(CKD) >90 (>60 ml/min/1.73 sqM); Potassium 3.8 mmol/L (3.5-5.1); Sodium 138 mmol/L (137-145); Total Bilirubin 1.5 mg/dL (0.2-1.3); Total Protein 8.3 g/dL (6.3-8.2)
[2025-03-01 14:55] LABS: Influenza A Not Detected (Not Detectd); Influenza B Not Detected (Not Detectd); RSV Not Detected (Not Detectd)
--- NOTE | 2025-03-01 14:59 | ED ---
General Adult HPI - General Chief complaint: Abdominal Pain Stated complaint: fever, NVD Time Seen by Provider: 03/01/25 14:37 Source: patient, RN notes reviewed Mode of arrival: ambulatory Limitations: no limitations - History of Present Illness Initial comments: 64-year-old female presents to the emergency department for evaluation of abdominal pain. Patient states that the symptoms started on Wednesday. She notes abdominal pain in bilateral lower abdomen along with abdominal bloating. She endorses some changes in her bowel movements. She also reports fevers at home. She does state that she had a fever yesterday. Denies any nausea or vomiting. She has a history of diverticulitis and states that this feels similar to prior episodes. Prior abdominal surgeries include section. - Related Data Home Medications Medication Instructions Recorded Confirmed Atorvastatin [Lipitor] 40 mg PO HS 02/27/22 08/25/23 Levothyroxine Sodium [Synthroid] 50 mcg PO DAILY 02/27/22 08/25/23 Pantoprazole Sodium [Protonix] 40 mg PO HS 02/27/22 08/25/23 traZODone HCL 50 mg PO HS 02/27/22 08/25/23 Escitalopram [Lexapro] 20 mg PO HS 12/04/22 08/25/23 Estrogen,Con/M-Progest Acet 1 each PO HS 12/04/22 08/25/23 [Prempro 0.45-1.5 mg Tablet] hydroCHLOROthiazide [Hydrodiuril] 25 mg PO DAILY 12/04/22 08/25/23 Unk Multi Vitamin 1 tab PO DAILY 01/22/23 08/25/23 Unk Vitamin C 1 tab PO DAILY 01/22/23 08/25/23 Previous Rx's Medication Instructions Recorded Albuterol Inhaler [Ventolin Hfa 1 - 2 puff INHALATION Q6H PRN #1 08/17/22 Inhaler] dispenser Ondansetron Odt [Zofran Odt] 4 mg PO Q8HR PRN #20 tab 10/23/22 Aspirin 81 mg PO BID 30 Days #60 tab 01/27/23 Docusate [Colace] 100 mg PO BID #60 capsule 01/27/23 HYDROcodone/APAP 5-325MG [[place] 1 tab PO Q6HR PRN 7 Days #20 tab 01/27/23 5-325] Allergies Allergy/AdvReac Type Severity Reaction Status Date / Time nickel Allergy Rash/Hives Verified 03/01/25 13:05 Review of Systems ROS Statement: Those systems with pertinent positive or pertinent negative responses have been documented in the HPI. ROS Other: All systems not noted in ROS Statement are negative. Past Medical History Past Medical History: Asthma, GERD/Reflux, Hyperlipidemia, Hypertension, Ost eoarthritis (OA), Pneumonia, Thyroid Disorder Additional Past Medical History / Comment(s): cough since Jul 2022., recent pneumonia late October,,treated. + flu A. -covid. CT shows some nodules, will be rechecked in 05/[address] Mathur History of Any Multi-Drug Resistant Organisms: None Reported Past Surgical History: Section Additional Past Surgical History / Comment(s): colonoscopies, Bronchoscopy Past Anesthesia/Blood Transfusion Reactions: No Reported Reaction Past Psychological History: Depression Smoking Status: Never smoker Past Alcohol Use History: Occasional Past Drug Use History: None Reported - Past Family History Father Family Medical History: Myocardial Infarction (CA) Mother Family Medical History: Cancer, Dementia Additional Family Medical History / Comment(s): lung cancer General Exam Limitations: no limitations General appearance: alert, in no apparent distress Head exam: Present: atraumatic, normocephalic, normal inspection Eye exam: Present: normal appearance, PERRL, EOMI. Absent: scleral icterus, c onjunctival injection, periorbital swelling ENT exam: Present: normal exam, mucous membranes moist Neck exam: Present: normal inspection. Absent: tenderness, meningismus, lymphadenopathy Respiratory exam: Present: normal lung sounds bilaterally. Absent: respiratory distress, wheezes, rales, rhonchi, stridor Cardiovascular Exam: Present: regular rate, normal rhythm, normal heart sounds. Absent: systolic murmur, diastolic murmur, rubs, gallop, clicks GI/Abdominal exam: Present: distended, tenderness, hypoactive bowel sounds Extremities exam: Present: normal inspection, full ROM, normal capillary refill. Absent: tenderness, pedal edema, joint swelling, calf tenderness Back exam: Present: normal inspection Neurological exam: Present: alert, oriented X3 Psychiatric exam: Present: normal affect, normal mood Course Vital Signs 03/01/25 03/01/25 03/01/25 13:03 17:47 17:58 Temperature 97.9 F Pulse Rate 98 85 85 Respiratory 18 18 18 Rate Blood Pressure 154/85 147/82 147/82 O2 Sat by Pulse 98 97 97 Oximetry Medical Decision Making - Medical Decision Making Was pt. sent in by a medical professional or institution (JENNIFER Rivas, STRETCHER DRIER OPERATOR, urgent care, hospital, or penitentiary...) When possible be specific @ -No Did you speak to anyone other than the patient for history (EMS, parent, family, police, friend...)? What history was obtained from this source @ -No Did you review nursing and triage notes (agree or disagree)? Why? @ -I reviewed and agree with nursing and triage notes Were old charts reviewed (outside hosp., previous admission, EMS record, old EKG, old radiological studies, urgent care reports/EKG's, penitentiary records)? Report findings @ -No old charts were reviewed Differential Diagnosis (chest pain, altered mental status, abdominal pain women, abdominal pain men, vaginal bleeding, weakness, fever, dyspnea, syncope, headache, dizziness, GI bleed, back pain, seizure, CVA, palpatations, mental health, musculoskeletal)? @ -Differential Abdominal Pain Women: Appendicitis, Cholecystitis, diverticulosis, ischemic bowel, pancreatitis, hepatitis, UTI, gastroenteritis, AAA, incarcerated hernia, bowel obstruction, constipation, inflammatory bowel, hepatitis, peptic ulcer disease, splenic infarction, perforated viscus, vulvitis, ovarian torsion, PID, kidney stone, placenta abruption, this is not meant to be an all-inclusive list EKG interpreted by me (3pts min.). @ -None X-rays interpreted by me (1pt min.). @ -None done CT interpreted by me (1pt min.). @ -CT abdomen pelvis showsAbnormal appearing uterus findings could indicate infection or neoplasm U/S interpreted by me (1pt. min.). @ -Pelvic ultrasound revealsFluid within the uterine cavity, abnormal for postmenopausal female endometrial stripe thickness 5 mm may be due to cervical stenosis, small cervical nabothian cyst What testing was considered but not performed or refused? (CT, X-rays, U/S, labs)? Why? @ -None What meds were considered but not given or refused? Why? @ -None Did you discuss the management of the patient with other professionals (professionals i.e. Dr., PA, STRETCHER DRIER OPERATOR, lab, RT, psych nurse, director social service, kaitara taraka, teacher, chief nursing officer, child welfare caseworker)? Give summary @ -No Was smoking cessation discussed for >3mins.? @ -No Was critical care preformed (if so, how long)? @ -No Were there social determinants of health that impacted care today? How? (Homelessness, low income, unemployed, alcoholism, drug addiction, transportation, low edu. Level, literacy, decrease access to med. care, usp, rehab)? @ -No Was there de-escalation of care discussed even if they declined (Discuss DNR or withdrawal of care, Hospice)? DNR status @ -No What co-morbidities impacted this encounter? (DM, HTN, Smoking, COPD, CAD, Cancer, CVA, ARF, Chemo, Hep., AIDS, mental health diagnosis, sleep apnea, morbid obesity)? @ -None Was patient admitted / discharged? Hospital course, mention meds given and route, prescriptions, significant lab abnormalities, going to OR and other pertinent info. @ -Discharge. Patient presented emergency department for evaluation of abdominal pain, bloating, diarrhea.Laboratory studies revealed no significant leukocytosis, hemoglobin 15.6; CMP is nonactionable at this time UA shows no evidence of infectious process negative for COVID, influenza, RSV. CT of the abdomen pelvis reveals an abnormal uterus. Ultrasound was obtained for this reason which reveals a fluid within the uterine cavity, abnormal for postmenopausal female, endometrial stripe thickness of 5 mm, may be due to cervical stenosis, small cervical nabothian cyst. The patient will be discharg ed home. I advised her that she needs to follow-up with gynecology closely. She is understanding agreeable with plan. Patient stable at time of discharge. Case discussed with Dr. Kemp. Undiagnosed new problem with uncertain prognosis? @ -No Drug Therapy requiring intensive monitoring for toxicity (Heparin, Nitro, Insulin, Cardizem)? @ -No Were any procedures done? @ -No Diagnosis/symptom? @ -Abdominal pain Acute, or Chronic, or Acute on Chronic? @ -Acute Uncomplicated (without systemic symptoms) or Complicated (systemic symptoms)? @ -Uncomplicated Side effects of treatment? @ -No Exacerbation, Progression, or Severe Exacerbation? @ -No Poses a threat to life or bodily function? How? (Chest pain, [place], CA, pneumonia, PE, COPD, DKA, ARF, appy, cholecystitis, CVA, Diverticulitis, Homicidal, Suicidal, threat to staff... and all critical care pts) @ -No - Lab Data Result diagrams: 03/01/25 13:38 03/01/25 13:38 Lab Results 03/01/25 03/01/25 03/01/25 Range/Units 13:07 13:12 13:38 WBC 7.89 (4.50-10.00) 10*3/uL RBC 5.40 H (4.10-5.20) 10*6/uL Hgb 15.6 H (12.0-15.0) g/dL Hct 46.1 (37.2-46.3) % MCV 85.4 (80.0-97.0) fL MCH 28.9 (27.0-32.0) pg MCHC 33.8 (32.0-37.0) g/dL Plt Count 369 (140-440) 10*3/uL MPV 9.3 L (9.5-12.2) fL Immature Gran % (Auto) 0.5 % Neutrophils % 59.2 % Lymphocytes % 26.4 % Monocytes % 10.6 % Eosinophils % 3.0 % Basophils % 0.3 % Immature Gran # 0.04 (0.00-0.04) 10*3/uL Neutrophils # 4.67 (1.80-7.70) 10*3/uL Lymphocytes # 2.08 (0.90-5.00) 10*3/uL Monocytes # 0.84 (0.20-1.00) 10*3/uL Eosinophils # 0.24 (0.04-0.35) 10*3/uL Basophils # 0.02 (0.00-0.10) 10*3/uL Sodium (137-145) mmol/L Potassium (3.5-5.1) mmol/L Chloride (98-107) mmol/L Carbon Dioxide (22-30) mmol/L Anion Gap mmol/L BUN (7-17) mg/dL Creatinine (0.52-1.04) mg/dL Est GFR (CKD-EPI)AfAm (>60 ml/min/1.73 sqM) Est GFR (CKD-EPI)NonAf (>60 ml/min/1.73 sqM) Glucose (74-99) mg/dL Plasma Lactic Acid [place] (0.7-2.0) mmol/L Calcium (8.4-10.2) mg/dL Total Bilirubin (0.2-1.3) mg/dL AST (14-36) U/L ALT (4-34) U/L Alkaline Phosphatase (38-126) U/L Total Protein (6.3-8.2) g/dL Albumin (3.5-5.0) g/dL Urine Color Light Yellow Urine Appearance Clear (Clear) Urine pH 5.5 (5.0-8.0) Ur Specific [place] 1.013 (1.001-1.035) Urine Protein Negative (Negative) Urine Glucose (UA) Negative (Negative) Urine Ketones Negative (Negative) Urine Blood Negative (Negative) Urine Nitrite Negative (Negative) Urine Bilirubin Negative (Negative) Urine Urobilinogen <2.0 (<2.0) mg/dL Ur Leukocyte Esterase Negative (Negative) Influenza Type A (PCR) Not Detected (Not Detectd) Influenza Type B (PCR) Not Detected (Not Detectd) RSV (PCR) Not Detected (Not Detectd) SARS-CoV-2 (PCR) Not Detected (Not Detectd) 03/01/25 03/01/25 Range/Units 13:38 13:38 WBC (4.50-10.00) 10*3/uL RBC (4.10-5.20) 10*6/uL Hgb (12.0-15.0) g/dL Hct (37.2-46.3) % MCV (80.0-97.0) fL MCH (27.0-32.0) pg MCHC (32.0-37.0) g/dL Plt Count (140-440) 10*3/uL MPV (9.5-12.2) fL Immature Gran % (Auto) % Neutrophils % % Lymphocytes % % Monocytes % % Eosinophils % % Basophils % % Immature Gran # (0.00-0.04) 10*3/uL Neutrophils # (1.80-7.70) 10*3/uL Lymphocytes # (0.90-5.00) 10*3/uL Monocytes # (0.20-1.00) 10*3/uL Eosinophils # (0.04-0.35) 10*3/uL Basophils # (0.00-0.10) 10*3/uL Sodium 138 (137-145) mmol/L Potassium 3.8 (3.5-5.1) mmol/L Chloride 101 (98-107) mmol/L Carbon Dioxide 21 L (22-30) mmol/L Anion Gap 16 mmol/L BUN 14 (7-17) mg/dL Creatinine 0.62 (0.52-1.04) mg/dL Est GFR (CKD-EPI)AfAm >90 (>60 ml/min/1.73 sqM) Est GFR (CKD-EPI)NonAf >90 (>60 ml/min/1.73 sqM) Glucose 101 H (74-99) mg/dL Plasma Lactic Acid [place] 1.2 (0.7-2.0) mmol/L Calcium 9.9 (8.4-10.2) mg/dL Total Bilirubin 1.5 H (0.2-1.3) mg/dL AST 32 (14-36) U/L ALT 41 H (4-34) U/L Alkaline Phosphatase 119 (38-126) U/L Total Protein 8.3 H (6.3-8.2) g/dL Albumin 4.9 (3.5-5.0) g/dL Urine Color Urine Appearance (Clear) Urine pH (5.0-8.0) Ur Specific [place] (1.001-1.035) Urine Protein (Negative) Urine Glucose (UA) (Negative) Urine Ketones (Negative) Urine Blood (Negative) Urine Nitrite (Negative) Urine Bilirubin (Negative) Urine Urobilinogen (<2.0) mg/dL Ur Leukocyte Esterase (Negative) Influenza Type A (PCR) (Not Detectd) Influenza Type B (PCR) (Not Detectd) RSV (PCR) (Not Detectd) SARS-CoV-2 (PCR) (Not Detectd) Disposition Clinical Impression: Abdominal pain Disposition: HOME SELF-CARE Condition: Stable Instructions (If sedation given, give patient instructions): Abdominal Pain (ED) Additional Instructions: Please follow up with your primary care provider and your automotive painter. Return to the emergency department for new or worsening symptoms. Is patient prescribed a controlled substance at d/c from ED?: No Referrals: Rafat Oseguera MD [Primary Care Provider] - 1-2 days
--- NOTE | 2025-03-01 15:44 | CT ---
EXAMINATION TYPE: CT abdomen pelvis w con DATE OF EXAM: 03/01/2025 COMPARISON: None CLINICAL INDICATION: Female, 64 years old with history of abd pain, hx diverticulitis; PHH, C/O of bi lateral flank pain, fevers, nausea, bloating x Wednesday. Hx of diverticulitis. TECHNIQUE: Performed without Oral Contrast and with IV Contrast, patient injected with 100 ml mL of Isovue 300. CT DLP: 815.[address] CTDI: mGy Automated exposure control for dose reduction was used. FINDINGS: The lung bases are clear. The gallbladder is normal without distention, wall thickening, pericholecystic fluid or gallstones. T here is no biliary ductal dilatation. There is no focal mass or organomegaly involving the liver, pancreas, spleen or adrenal glands. There is no solid renal mass or hydronephrosis and there is homogeneous contrast enhancement of the r enal parenchyma. The caliber the abdominal aorta is normal is no retroperitoneal adenopathy or hemorr homa. The bowel loops are normal in caliber and there is no evidence of dilatation or obstruction. No infla mmatory changes are identified in the bowel wall or mesentery. There is no free intraperitoneal air or fluid. Uterine cavity is mildly distended with low-density material and in a patient of this age, further ev aluation of the uterus is warranted. The osseous structures and soft tissues are intact. IMPRESSION: Abnormal appearing uterus for patient of this age and further evaluation the uterus is warranted, see above. Findings could indicate infection or neoplasm. [facility], , 03/01/2025 3:41 PM
--- NOTE | 2025-03-01 16:51 | US ---
EXAMINATION TYPE: US pelvis complete transvag DATE OF EXAM: 03/01/2025 COMPARISON: CT 03/01/2025 CLINICAL INDICATION: Female, 64 years old with history of abn CT; D&C in November to stop bleeding fro m cervical cyst. TECHNIQUE: Transvaginal (TV) and Transabdominal (TA) . Transabdominal grayscale sonographic images of the pelvis were acquired. Transvaginal sonographic im ages were medically necessary to better assess the following anatomy: Endometrium Doppler imaging: Not performed. FINDINGS: Date of LMP: @ age 48 or 49 EXAM MEASUREMENTS: Uterus: 8.4 x 2.8 x 3.7 cm Endometrial Stripe: 0.5 cm Right Ovary: 2.4 x 1.5 x 1.8 cm Left Ovary: 1.9 x 1.7 x 1.6 cm 1. Uterus: Anteverted a few small cervical nabothian cysts measuring up to 4 mm. 2. Endometrium: There appears to be fluid within the uterine cavity the endometrial strip es. 3. Right Ovary: Non vis TV;WNL as visualized 4. Left Ovary: Non vis TV;WNL as visualized 5. Bilateral Adnexa: wnl 6. Posterior cul-de-sac: wnl IMPRESSION: 1. There appears to be fluid within the uterine cavity, abnormal for a postmenopausal female. Endomet rial stripe thickness estimated at 5 mm. Findings may be due to a cervical stenosis. Consider further BUN PANNER evaluation. 2. A few small cervical nabothian cysts measuring up to 4 mm. 3. No evident adnexal abnormality or cul-de-sac free fluid. [facility], , 03/01/2025 4:49 PM
[2025-03-01 18:00] VITALS: BP 147/82; PULSE 85
== END 2025-03-01 17:59 | disposition home or self-care (01) ==
LOC: EC 12:53
DX: N88.8 Other specified noninflammatory disorders of cervix uteri (principal); Z91.09 Other allergy status, other than to drugs and biological substances
CPT/HCPCS: 36415; 80053; 83605; 85025; 81003; 87636; 76856; 76830; 74177; 99284; Q9967

== ENCOUNTER → 2025-04-27 | Outpatient (CLI) | payer MEDICARE ==
--- NOTE | 2025-04-27 10:49 | XR ---
EXAMINATION TYPE: XR lumbar spine 2 or 3V DATE OF EXAM: 04/27/2025 10:44 AM COMPARISON: None. CLINICAL INDICATION: Female, 64 years old with history of M54.50 LOW BACK PAIN, pain TECHNIQUE: 3 view(s) obtained. FINDINGS: There are 5 lumbar-type vertebral bodies. Pedicles appear intact. There is loss of disc height L5-S1. Mild posterior disc space narrowing is within the remaining portions of the lumbar spine. No loss of vertebral body height is evident. Alignment is preserved. There may be attempted sacralization of L5 bilaterally. IMPRESSION: 1. Degenerative disc changes, greatest L5-S1. [facility], , 04/27/2025 10:46 AM
== END | disposition home or self-care (01) ==
LOC: RADXRMAIN 10:31
PROVIDERS: ATTEND Family Medicine
DX: M51.360 Other intervertebral disc degeneration, lumbar region with discogenic back pain only (principal); M47.817 Spondylosis without myelopathy or radiculopathy, lumbosacral region
CPT/HCPCS: 72100